=== PATIENT | male | born 1940 | race Caucasian/White ===

== ENCOUNTER 2020-02-03 13:04 | Outpatient (REF) | payer MEDICARE, SELFPAY | END 2020-02-03 13:05 | disposition home or self-care (01) | LOC: HO.HSH4W 13:04 | PROVIDERS: Visit Provider Internal Medicine Interventional Cardiology | DX: Z20.828 Contact with and (suspected) exposure to other viral communicable diseases (principal) | CPT/HCPCS: U0003 ==

== ENCOUNTER 2020-02-08 07:27 | Outpatient (REF) | payer MEDICARE, SELFPAY ==
[2020-02-08 08:27] LABS: MANUAL DIFF FLAG NO
[2020-02-08 08:30] LABS: Basophils Percent Auto 0.6 % (0-2); Eosinophils Absolute Auto 0.1 X10*3/uL (0.0-0.4); Hematocrit 33.5 % (42-52); Hemoglobin 11.4 g/dl (14.0-18.0); Imm Gran Abs Auto 0.01 X10*3/uL (0.00-0.03); Imm Gran Pct Auto 0.2 % (0.0-0.4); Lymphocytes Absolute Auto 2.6 X10*3/uL (1.2-4.9); Mean Corpuscular Hemoglobin 33.4 pg (27.0-33.0); Mean Corpuscular Volume 98.2 fL (80-98); Monocytes Absolute Auto 0.6 X10*3/uL (0.1-1.2); Monocytes Percent Auto 9.9 % (2-11); Neutrophils Absolute Auto 3.1 X10*3/uL (2.0-8.3); Neutrophils Percent Auto 47.3 % (45-73); Platelet Count 132 X10*3/uL (160-400); Red Blood Count 3.41 X10*6/uL (4.60-5.80); Red Cell Distribution Width 12.5 % (11.0-16.0); White Blood Count 6.5 X10*3/uL (4.8-10.8)
[2020-02-08 09:12] LABS: Vitamin D 25-OH Total 21.2 ng/mL (>30)
== END 2020-02-08 07:28 | disposition home or self-care (01) ==
LOC: HO.HSH4W 07:27
PROVIDERS: Visit Provider Internal Medicine
DX: E55.9 Vitamin D deficiency, unspecified (principal)
CPT/HCPCS: 36415; 82306; 85025

== ENCOUNTER 2020-03-15 06:59 | Outpatient (REF) | payer MEDICARE, SELFPAY ==
[2020-03-15 09:16] LABS: Anion Gap 11 (12-20); Blood Urea Nitrogen 24 mg/dL (9-16); Carbon Dioxide 27 mmol/L (22-29); Chloride 103 mmol/L (96-108); Estimated Glomerular Filt Rate > 60; Glucose Fasting 86 mg/dL (60-99); Potassium 4.2 mmol/l (3.3-5.1); Sodium 137 mmol/L (135-145)
== END 2020-03-15 07:00 | disposition home or self-care (01) ==
LOC: HO.HSH4W 06:59
PROVIDERS: Visit Provider Internal Medicine
DX: R03.0 Elevated blood-pressure reading, without diagnosis of hypertension (principal)
CPT/HCPCS: 80051; 82565; 82947; 84520

== ENCOUNTER 2020-03-16 11:24 | Outpatient (REF) | payer MEDICARE, SELFPAY ==
[2020-03-16 11:44] LABS: MANUAL DIFF FLAG NO
[2020-03-16 11:47] LABS: Basophils Percent Auto 0.4 % (0-2); Eosinophils Absolute Auto 0.2 X10*3/uL (0.0-0.4); Eosinophils Percent Auto 2.2 % (0-4); Hematocrit 36.1 % (42-52); Hemoglobin 12.3 g/dl (14.0-18.0); Imm Gran Abs Auto 0.03 X10*3/uL (0.00-0.03); Imm Gran Pct Auto 0.4 % (0.0-0.4); Lymphocytes Absolute Auto 2.2 X10*3/uL (1.2-4.9); Lymphocytes Percent Auto 29.9 % (20-40); Mean Corpuscular HGB Conc 34.1 g/dl (31.0-36.0); Mean Corpuscular Hemoglobin 33.8 pg (27.0-33.0); Mean Corpuscular Volume 99.2 fL (80-98); Mean Platelet Volume 10.9 fL (9.4-12.4); Monocytes Absolute Auto 0.7 X10*3/uL (0.1-1.2); Monocytes Percent Auto 9.8 % (2-11); Neutrophils Absolute Auto 4.2 X10*3/uL (2.0-8.3); Neutrophils Percent Auto 57.3 % (45-73); Platelet Count 145 X10*3/uL (160-400); Red Blood Count 3.64 X10*6/uL (4.60-5.80); Red Cell Distribution Width 13.1 % (11.0-16.0); White Blood Count 7.4 X10*3/uL (4.8-10.8)
[2020-03-16 12:13] LABS: Alanine Aminotransferase < 6 U/L (0-40); Alkaline Phosphatase 67 U/L (39-117); Anion Gap 10 (12-20); Aspartate Amino Transferase 9 U/L (5-37); Bilirubin Total 0.4 mg/dL (0.0-1.0); Blood Urea Nitrogen 19 mg/dL (9-16); Calcium 8.3 mg/dL (8.4-10.2); Carbon Dioxide 27 mmol/L (22-29); Chloride 105 mmol/L (96-108); Estimated Glomerular Filt Rate > 60; Glucose Random 110 mg/dL (60-115); Potassium 4.2 mmol/l (3.3-5.1); Sodium 138 mmol/L (135-145); Total Protein 6.8 g/dL (6.5-8.0)
== END 2020-03-16 11:25 | disposition home or self-care (01) ==
LOC: HO.HSH4W 11:24
PROVIDERS: Visit Provider Internal Medicine
DX: D64.9 Anemia, unspecified (principal)
CPT/HCPCS: 36415; 80053; 85025

== ENCOUNTER 2020-07-05 22:17 | Emergency (ER) | payer MEDICARE, SELFPAY ==
--- NOTE | ~2020-07-05 | XR_ITS ---
EXAMINATION: XR CHEST CLINICAL INFORMATION: Altered mental status COMPARISON: None TECHNIQUE: Frontal view of the chest was obtained. FINDINGS: All EKG lead wires overlie the area of abnormality which is at the left base in the retrocardiac region with increased opacity and obscuration left hemidiaphragm. Findings consistent with left lower lobe collapse/consolidation. The heart size is normal. The right lung is clear. No pleural effusions are seen. Degenerative changes noted in both shoulders and the spine. Rounded eggshell calcification just beneath the medial end of the right clavicle most likely represents the innominate artery XR/XR chest 1V IMPRESSION: Left lower lobe collapse/consolidation.
--- NOTE | 2020-07-05 22:25 | ECG_ITS ---
Test Reason : CHANGE IN MENTAL Blood Pressure : / mmHG Vent. Rate : 068 BPM Atrial Rate : 068 BPM P-R Int : 362 ms QRS Dur : 160 ms QT Int : 458 ms P-R-T Axes : 038 -47 015 degrees QTc Int : 487 ms Sinus rhythm with 1st degree A-V block Possible Left atrial enlargement Right bundle branch block Left anterior fascicular block Bifascicular block Left ventricular hypertrophy Cannot rule out Septal infarct , age undetermined Abnormal ECG No previous ECGs available Referred By: Gamaliel Rios Electronically Signed By:SHARRI BAUM MD
--- NOTE | 2020-07-05 22:25 | ED.AMS ---
HPI - Altered Mental Status General Chief Complaint: General Medical Stated Complaint: general medical Time Seen by Provider: 07/05/20 22:22 Source: patient and EMS Mode of arrival: EMS Limitations: altered mental status History of Present Illness HPI narrative: Patient from detention facility with history of Parkinson disease was in deep sleep not responding for 20 minutes prior to arrival woke up back to baseline but family told the nurses to send the patient to the ER. Patient at his baseline denies any complaints alert oriented x2 which is his baseline occasionally having sporadic nonproductive cough which is going on for last few days complaint: altered mental status and decreased responsiveness Onset (ago): minute(s) Timing confirmed by: caregiver Severity: mild Related Data Previous Rx's Medication Instructions Recorded amoxicillin-pot clavulanate 1 tab PO BID #20 tab 07/06/20 [Augmentin] Allergies Allergy/AdvReac Type Severity Reaction Status Date / Time No Known Allergies Allergy Verified 07/05/20 22:25 Review of Systems Review of Systems: Yes Unobtainable due to mental status PMFSH Past Medical History Medical History A-fib Anemia BPH (benign prostatic hyperplasia) CKD (chronic kidney disease) Eczema GERD (gastroesophageal reflux disease) HTN (hypertension) Hyperlipidemia Parkinsons Solar degeneration Social History Social History Alcohol intake: former Smoking Status: Former smoker Use of substances other than those prescribed or required for medical reasons: No Advance Directives: No Advance Directives Information Provided: Yes Physical Exam Vital Signs: Vital Signs: Last Vital Signs Temp 98.7 F 07/05/20 22:29 Pulse 52 07/06/20 00:35 Resp 18 07/06/20 00:35 BP 120/70 07/05/20 22:29 Pulse Ox 94 07/06/20 00:35 Body Mass Index 24.0 Const: General: comfortable, no acute distress, alert and awake Nutritional Appearance: average body habitus Orientation/consciousness: oriented to person and oriented to place HENMT: Head: Yes normocephalic and Yes atraumatic Ears: hearing grossly normal bilaterally Eyes: General: appearance normal, both eyes and all related structures Neck: Neck: Yes normal visual inspection and Yes full ROM Chest: Chest palpation & inspection: normal inspection of the chest Resp: Effort & Inspection: normal respiratory effort Auscultation: clear to auscultation bilaterally, no crackles and no rales Cardio: Jugular venous distension: no JVD Palpation: normal PMI Rate: regular rate Rhythm: regular rhythm Heart sounds: S1 normal heart sound present and S2 normal heart sound present Peripheral pulses: Peripheral pulses 2+ throughout GI: Inspection: Yes normal to inspection Palpation (GI): Soft to palpation and nontender : General: Yes no CVA tenderness Back/Spine/Pelvis: Back: no CVA tenderness Thoracic/Lumbar Spine: thoracic and lumbar spine normal to inspection Skin: General skin exam: no rashes or lesions noted Neuro: Other: Parkinson's features+ with resting tremors General: oriented to person, oriented to place and no focal motor deficits Extrem: General: Yes normal to inspection, Yes full ROM and Yes no pedal edema MDM - Altered Mental Status MDM Narrative Medical decision making narrative: Patient with possible aspiration pneumonia left lower lobe no leukocytosis labs are stable patient alert oriented x2 saturating 99% at room air IV dose of Zosyn was given in the ER patient discharged back to detention on Augmentin Differential Diagnosis Differential diagnosis: Likely altered mental status Medical Records Attestation: I reviewed the patient's medical records. Lab Data Attestation: I reviewed the patient's lab results. Result diagrams: 07/05/20 22:54 07/05/20 22:54 Labs: Lab Results 07/05/20 07/05/20 07/05/20 Range/Units 22:54 22:54 22:54 WBC 7.9 (4.8-10.8) X10*3/uL RBC 3.17 L (4.60-5.80) X10*6/uL Hgb 10.7 L (14.0-18.0) g/dl Hct 31.8 L (42-52) % MCV 100.3 H (80-98) fL MCH 33.8 H (27.0-33.0) pg MCHC 33.6 (31.0-36.0) g/dl RDW 13.5 (11.0-16.0) % Plt Count 158 L (160-400) X10*3/uL MPV 9.9 (9.4-12.4) fL Immature Gran % (Auto) 0.4 (0.0-0.4) % Neut % (Auto) 43.1 L (45-73) % Lymph % (Auto) 42.1 H (20-40) % [place] % (Auto) 12.1 H (2-11) % Eos % (Auto) 1.8 (0-4) % Baso % (Auto) 0.5 (0-2) % Lymph # (Auto) 3.3 (1.2-4.9) X10*3/uL [place] # (Auto) 1.0 (0.1-1.2) X10*3/uL Eos # (Auto) 0.1 (0.0-0.4) X10*3/uL Baso # (Auto) 0.0 (0.0-0.2) X10*3/uL Abs Immat Gran (auto) 0.03 (0.00-0.03) X10*3/uL Absolute Neuts (auto) 3.4 (2.0-8.3) X10*3/uL Absolute Nucleated RBC 0.000 (0.0-0.012) X10*3/uL Nucleated RBC % (auto) 0.0 (0.0-0.2) /100WBC PT 12.6 (10.8-13.0) SEC INR 1.1 (0.9-1.1) APTT 34.7 (24.1-38.0) SEC Sodium 133 L (135-145) mmol/L Potassium 4.6 (3.3-5.1) mmol/L Chloride 101 (96-108) mmol/L Carbon Dioxide 25 (22-29) mmol/L Anion Gap 12 (12-20) BUN 24 H (9-16) mg/dL Creatinine 0.99 (0.5-1.4) mg/dL Estim Creat Clear Calc 51.9 Estimated GFR > 60 Random Glucose 81 (60-115) mg/dL Calcium 8.4 (8.4-10.2) mg/dL Total Bilirubin 0.3 (0.0-1.0) mg/dL Direct Bilirubin 0.2 (0.0-0.5) mg/dL AST 13 D (5-37) U/L ALT 6 (0-40) U/L Alkaline Phosphatase 69 (39-117) U/L Troponin I High Sens (<3.5-35.0) ng/L Total Protein 6.8 (6.5-8.0) g/dL Albumin 3.9 (3.5-5.0) g/dL 07/05/20 Range/Units 22:54 WBC (4.8-10.8) X10*3/uL RBC (4.60-5.80) X10*6/uL Hgb (14.0-18.0) g/dl Hct (42-52) % MCV (80-98) fL MCH (27.0-33.0) pg MCHC (31.0-36.0) g/dl RDW (11.0-16.0) % Plt Count (160-400) X10*3/uL MPV (9.4-12.4) fL Immature Gran % (Auto) (0.0-0.4) % Neut % (Auto) (45-73) % Lymph % (Auto) (20-40) % [place] % (Auto) (2-11) % Eos % (Auto) (0-4) % Baso % (Auto) (0-2) % Lymph # (Auto) (1.2-4.9) X10*3/uL [place] # (Auto) (0.1-1.2) X10*3/uL Eos # (Auto) (0.0-0.4) X10*3/uL Baso # (Auto) (0.0-0.2) X10*3/uL Abs Immat Gran (auto) (0.00-0.03) X10*3/uL Absolute Neuts (auto) (2.0-8.3) X10*3/uL Absolute Nucleated RBC (0.0-0.012) X10*3/uL Nucleated RBC % (auto) (0.0-0.2) /100WBC PT (10.8-13.0) SEC INR (0.9-1.1) APTT (24.1-38.0) SEC Sodium (135-145) mmol/L Potassium (3.3-5.1) mmol/L Chloride (96-108) mmol/L Carbon Dioxide (22-29) mmol/L Anion Gap (12-20) BUN (9-16) mg/dL Creatinine (0.5-1.4) mg/dL Estim Creat Clear Calc Estimated GFR Random Glucose (60-115) mg/dL Calcium (8.4-10.2) mg/dL Total Bilirubin (0.0-1.0) mg/dL Direct Bilirubin (0.0-0.5) mg/dL AST (5-37) U/L ALT (0-40) U/L Alkaline Phosphatase (39-117) U/L Troponin I High Sens 8.0 (<3.5-35.0) ng/L Total Protein (6.5-8.0) g/dL Albumin (3.5-5.0) g/dL ECG Data ECG #1: Attestation: I personally reviewed and interpreted this ECG as follows: Interpretation: Sinus rhythm heart rate 68 beats per minute with first-degree heart block RBBB left anterior fascicular block left ventricular hypertrophy no acute ischemic changes Discharge Plan Discharge Clinical Impression: Pneumonia Qualifiers: Pneumonia type: due to unspecified organism Laterality: left Lung location: lower lobe of lung Qualified Code(s): J18.9 - Pneumonia, unspecified organism Patient Disposition: Xfer SNF Instructions: Aspiration Pneumonia (DC) Additional Instructions: Possible left-sided lower lobe pneumonia versus atelectasis in x-ray, labs are stable without any leukocytosis Take antibiotics as advised Follow-up with PCP Report to the ER if high fever not feeling good/short of breath Prescriptions: New amoxicillin-pot clavulanate [Augmentin] 875-125 mg tablet 1 tab PO BID Qty: 20 RF: 0 Interventions: ED Discharge Assessment Last Done: 07/06/20 01:05 Discharge Date/Time: 07/06/20 01:05
[2020-07-05 22:29] VITALS: BP 120/70; PULSE 68; RESP 16; TEMP 37.1; O2SAT 99; BMI 24.0
[2020-07-05 22:58] LABS: MANUAL DIFF FLAG NO
[2020-07-05 22:59] LABS: Basophils Percent Auto 0.5 % (0-2); Eosinophils Absolute Auto 0.1 X10*3/uL (0.0-0.4); Eosinophils Percent Auto 1.8 % (0-4); Hematocrit 31.8 % (42-52); Hemoglobin 10.7 g/dl (14.0-18.0); Imm Gran Abs Auto 0.03 X10*3/uL (0.00-0.03); Imm Gran Pct Auto 0.4 % (0.0-0.4); Lymphocytes Absolute Auto 3.3 X10*3/uL (1.2-4.9); Lymphocytes Percent Auto 42.1 % (20-40); Mean Corpuscular HGB Conc 33.6 g/dl (31.0-36.0); Mean Corpuscular Hemoglobin 33.8 pg (27.0-33.0); Mean Corpuscular Volume 100.3 fL (80-98); Mean Platelet Volume 9.9 fL (9.4-12.4); Monocytes Percent Auto 12.1 % (2-11); Neutrophils Absolute Auto 3.4 X10*3/uL (2.0-8.3); Neutrophils Percent Auto 43.1 % (45-73); Platelet Count 158 X10*3/uL (160-400); Red Blood Count 3.17 X10*6/uL (4.60-5.80); Red Cell Distribution Width 13.5 % (11.0-16.0); White Blood Count 7.9 X10*3/uL (4.8-10.8)
[2020-07-05 23:04] LABS: INTERNATIONAL NORM RATIO 1.1 (0.9-1.1); Prothrombin Time 12.6 SEC (10.8-13.0)
[2020-07-05 23:07] LABS: Partial Thromboplastin Time 34.7 SEC (24.1-38.0)
[2020-07-05 23:25] LABS: Alanine Aminotransferase 6 U/L (0-40); Albumin Level 3.9 g/dL (3.5-5.0); Alkaline Phosphatase 69 U/L (39-117); Anion Gap 12 (12-20); Aspartate Amino Transferase 13 U/L (5-37); Bilirubin Direct 0.2 mg/dL (0.0-0.5); Bilirubin Total 0.3 mg/dL (0.0-1.0); Blood Urea Nitrogen 24 mg/dL (9-16); Calcium 8.4 mg/dL (8.4-10.2); Carbon Dioxide 25 mmol/L (22-29); Chloride 101 mmol/L (96-108); Creatinine Clr Calc Pharmacy 51.9; Estimated Glomerular Filt Rate > 60; Glucose Random 81 mg/dL (60-115); Potassium 4.6 mmol/L (3.3-5.1); Sodium 133 mmol/L (135-145); Total Protein 6.8 g/dL (6.5-8.0)
[2020-07-06] MEDS: Piperacillin Sodium/Tazobactam 3.375 GM in 0.9 % Sodium Chloride 50 ML IV (00:23)
[2020-07-06 00:35] VITALS: PULSE 52; RESP 18; O2SAT 94
--- NOTE | 2020-07-06 00:35 | PC.NURSE ---
report given to tresa ann at [facility]. no questions regarding incidiental finding of pneumonia.
== END 2020-07-06 01:05 | disposition skilled nursing facility (03) ==
PROVIDERS: Emergency Provider Internal Medicine; PCP Internal Medicine
DX: J18.9 Pneumonia, unspecified organism (principal); R41.82 Altered mental status, unspecified; I12.9 Hypertensive chronic kidney disease with stage 1 through stage 4 chronic kidney disease, or unspecified chronic kidney disease; N18.9 Chronic kidney disease, unspecified; E78.5 Hyperlipidemia, unspecified; D64.9 Anemia, unspecified; K21.9 Gastro-esophageal reflux disease without esophagitis; I48.91 Unspecified atrial fibrillation; G20 Parkinson's disease
CPT/HCPCS: 36415; 71045; 80048; 80076; 84484; 85025; 85610; 85730; 93005; 96365; 99284; J2543

== ENCOUNTER 2020-07-24 06:46 | Outpatient (REF) | payer MEDICARE, SELFPAY ==
[2020-07-24 09:33] LABS: Anion Gap 11 (12-20); Carbon Dioxide 27 mmol/L (22-29); Chloride 106 mmol/L (96-108); Potassium 4.5 mmol/L (3.3-5.1); Sodium 139 mmol/L (135-145)
== END 2020-07-24 06:47 | disposition home or self-care (01) ==
LOC: HO.HSH2E 06:46
PROVIDERS: Visit Provider Internal Medicine Endocrinology, Diabetes & Metabolism
DX: G20 Parkinson's disease (principal)
CPT/HCPCS: 36415; 80051

== ENCOUNTER 2020-09-21 08:25 | Outpatient (REF) | payer MEDICARE, SELFPAY ==
--- NOTE | ~2020-09-21 | FL_ITS ---
EXAMINATION: FL BARIUM SWALLOW CLINICAL INFORMATION: Dysphagia COMPARISON: None TECHNIQUE: Barium swallow examination is performed using fluoroscopic evaluation in addition to multiple fluoroscopic spot views. The patient is imaged both upright and prone and using both thick and thin sulfate along with effervescent granules. Fluoroscopy time: 1.6 minutes DAP: 14.931 Gycm2 Images: 30 FINDINGS: Following oral administration of thin barium there is slow propagation bolus from the oral cavity through the pharynx, esophagus into stomach. No obstruction seen along the course of the esophagus. Almost all stomach is intrathoracic consistent with a moderate-sized hiatal hernia. The stomach is slightly twisted within the hernia but no obstruction seen. There is mild gastroesophageal reflux in supine lying position. FL/FL barium swallow IMPRESSION: Incarcerated moderate to large hiatal hernia in upright view. Mild gastroesophageal reflux in supine lying position.
== END 2020-09-21 08:26 | disposition home or self-care (01) ==
LOC: HO.XRAY 08:25
PROVIDERS: PCP Internal Medicine Medical Oncology; Visit Provider Internal Medicine Medical Oncology
DX: R13.10 Dysphagia, unspecified (principal)
CPT/HCPCS: 74220

== ENCOUNTER 2020-10-01 13:58 | Outpatient (REF) | payer MEDICARE, SELFPAY ==
--- NOTE | ~2020-10-01 | FL_ITS ---
EXAMINATION: FL MODIFIED BARIUM SWALLOW CLINICAL INFORMATION: Dysphagia COMPARISON: None TECHNIQUE: Routine modified barium swallow was performed in lateral fluoroscopy projection in presence of speech therapist. FINDINGS: Oral administration of solid cookie with barium, puree, ground chicken, nectar and thin liquid consistency coated with barium there is slow propagation of bolus from the oral cavity into the pharynx and esophagus without laryngeal penetration or aspiration. There is slight delay in the oral phase with solid foods. Mild retention of semisolid and solid food was seen in the valleculae and piriform sinuses which cleared with dry swallowing. FLUOROSCOPY TIME: 2.6 minutes DOSE AREA PRODUCT: 2.178 uGy-m2 (microgray-meter squared) FL/FL barium swallow modified IMPRESSION: Delay in the oral phase solid and liquids. However, there is no laryngeal penetration and aspiration seen. Mild retention of food in the valleculae and piriform sinuses especially with solid food cleared with subsequent dry swallowing. Correlate with speech therapy report.
--- NOTE | 2020-10-02 15:44 | MHC.SL.IMP ---
Date of Plan of Treatment: 10/01/20 Onset of Symptoms/Illness: 10/01/20 Date Treatment Started: 10/01/20 Admitting Diagnosis: Parkinson's Disease AFIB Anemia BPH CKD Eczema GERD Hypertension Hyperlipidemia Solar degeneration Primary Speech & Language Diagnosis: R13.12 Oropharyngeal Phase Dysphagia Reason for Today's Visit: 49336 Modified Barium Swallow Study Pre-evaluation Dietary Consistencies: Grnd/Mech Altered (NDD2) Pre-evaluation Liquid Consistency: Thin Pre-evaluation Medication Administration: Crushed with Puree Medical History: Modified Barium Swallow Study Fluoroscopic Evaluation of Swallowing Function CPT Code 76936 Evaluation Year: 2020 Reason for Study: Choking episodes Referring Physician: Chico Barreto M.D. Evaluating Clinician: Mandy Shah M.A., CCC-SHIFT SUPERVISOR RN Study Number: 1 Patient Name: Rony Oquendo Status: Outpatient, Wheelchair Age: 80 Gender: Male MEDICAL HISTORY: Primary (admitting) Diagnosis: Parkinson's Disease Year of Onset or Diagnosis: 2018 Comorbidities: AFIB Anemia BPH CKD Eczema GERD Hypertension Hyperlipidemia Solar degeneration Current (pre-evaluation) Intake/Diet: Route: PO Diet Grade: Mechanical Soft Liquid Consistencies: Thin Pre-Study Functional Oral Intake Scale (FOIS): 5- Total oral intake of multiple consistencies requiring special preparation Pain: None reported at time of study Oral Motor Exam Facial Symmetry: Symmetrical Mouth Occlusion: Normal Oral-Facial Teeth Characteristics: Oral-Facial Lip Pucker Description: Normal Oral-Facial Smile (Lips) Description: Normal Oral-Facial Puff Cheeks Description: Reduced Strength Tongue Size: Normal Tongue Frenum Length: Normal Tongue Excursion Description: Normal Tongue Range of Movement Description: Normal Tongue Speed of Movement Description: Reduced Tongue Strength of Movement (against opposing pressure): Reduced Is patient able to manage secretions?: Yes Food and Liquid Trials: Oral Impairment: Lip Closure: Did not test Oral Impairment: Tongue Control During Bolus Hold: 3=Posterior escape of greater than half of bolus Oral Impairment: Bolus Preparation/Mastication: 2=Disorganized chewing/mashing with solid pieces of bolus Oral Impairment: Bolus Transport/Lingual Motion: 3=Repetitive/disorganized tongue motion Oral Impairment: Oral Residue: 2=Residue collection on oral structures Oral Impairment:Initiation of Pharyngeal Swallow: 3=Bolus head in pyriforms Pharyngeal Impairment: Soft Palate Elevation: 0=No bolus between soft palate (SP)/pharyngeal wall (PW) Pharyngeal Impairment: Laryngeal Elevation: 1=Partial thyroid cartilage/arytenoids to epiglottic petiole movement Pharyngeal Impairment: Anterior Hyoid Excursion: 1=Partial anterior movement Pharyngeal Impairment: Epiglottic Movement: 1=Partial inversion Pharyngeal Impairment: Laryngeal Vestibular Closure:: 0=Complete: no air/contrast in laryngeal vestibule Pharyngeal Impairment: Pharyngeal Stripping Wave: 1=Present: diminished Pharyngeal Impairment: Pharyngeal Contraction: Did not test Pharyngeal Impairment: Pharyngoesophageal Segment Openin=Complete distension and complete duration: no obstruction of flow Pharyngeal Impairment: Tongue Base (TB) Retraction: 3=Wide column of contrast/air between TB and posterior PW Pharyngeal Impairment: Pharyngeal Residue: 2=Collection of residue within or on pharyngeal structures Pharyngeal Impairment: Esophageal Clearance Upright Position: Did not test Impressions and Recommendations Clinical Observations: OBJECTIVE: Time-out: performed at 02:45 Evaluation Start: 02:30; Stop: 02:40 Patient Positioning: Seated 70-90 degrees Viewing Planes: LATERAL ONLY Contrast: MBSImP? Standardized Protocol using commercially prepared, standardized Barium viscosities, including: Varibar? THIN LIQUID (40% w/v, <15 cps) , Varibar? NECTAR (40% w/v, <150-450 cps) , 1/2 Shortbread Cookie (1 x1 x.25 ) [facility]: [id number] [facility] Results: Lip closure for intraoral bolus containment could not be assessed due to logistical reasons not related to physiologic impairment. Tongue control during bolus hold allowed posterior escape of greater than half of the bolus. Bolus preparation and mastication demonstrated disorganized chewing/mashing with solid pieces of the bolus unchewed. Bolus transport/lingual motion was with repetitive/disorganized motion of the tongue. Oral residue was a collection on oral structures. Initiation of the pharyngeal swallow occurred when the bolus head was in the pyriform sinuses. Soft palate elevation resulted in no bolus between the soft palate and the pharyngeal wall. Laryngeal elevation was decreased, with partial superior movement of the thyroid cartilage/partial approximation of the arytenoids to the epiglottic petiole. Anterior hyoid excursion demonstrated partial anterior movement. Epiglottic movement resulted in partial inversion. Laryngeal vestibular closure was complete, as indicated by no air or contrast within the laryngeal vestibule at the height of the swallow. Pharyngeal stripping wave was present, but diminished. Pharyngeal contraction could not be determined due to logistical reasons not related to physiologic impairment. Pharyngoesophageal segment opening was completely distended for complete duration with no obstruction of bolus flow. Tongue base retraction allowed a wide column of contrast or air between the retracted tongue base and the posterior pharyngeal wall. Pharyngeal residue was a collection of residue within or on pharyngeal structures. Esophageal clearance in the upright position could not be assessed due to logistical reasons not related to physiologic impairment. Oral Impairment Score: 13 (absence of score, component 1) Pharyngeal Impairment Score: 9 (absence of score, component 13) Esophageal Impairment Score: --- (absence of score, component 17) Laryngeal Penetration and Aspiration: Neither penetration nor aspiration was observed in today's study with Cookie, [place]-thick, Thin. ASSESSMENT: This exam was conducted by a radiologist and speech-language pathologist. Patient was accompanied by staff from [facility], where patient resides. Patient was seated upright at optimal 90 degree position for lateral view only. Patient trialed the following liquid and solid consistencies: -nectar thick liquid barium by cup/straw -thin liquid barium by cup/straw -pureed solid (applesauce mixed with barium paste) -ground solid (chicken salad mixed with barium paste) -regular solid (Natalya Doone cookie coated with barium paste) Patient displayed moderate oropharyngeal dysphagia, characterized by impairments in the following components of swallow physiology: ORAL PHASE: IMPAIRED -posterior escape of greater than 50% of bolus with both solids and liquids -disorganized, prolonged chewing -repetitive/ disorganized posterior tongue movements -mild oral residue -delayed pharyngeal swallow trigger when bolus head reached pyriforms PHARYNGEAL PHASE: IMPAIRED -incomplete laryngeal elevation with partial anterior hyoid movement and partial epiglottic inversion -diminished pharyngeal stripping wave -reduced tongue base retraction -mild pharyngeal retention on tongue base and posterior pharyngeal wall as well as in valleculae and pyriforms No evidence of aspiration or penetration during this exam. Noted prolonged oral preparatory phase, delayed pharyngeal swallow trigger, and partial laryngeal elevation. Mild oral and pharyngeal residue. Patient cleared his throat as a result of retention. Patient was cued for double swallow strategy. Reduced residue with subsequent dry swallows. The following compensatory strategies have been used in therapy as well as in today's study and improved swallowing function: Bolus Volume Change decreased Oral Residue, Pharyngeal Residue Rate of Ingestion Change decreased Oral Residue, Pharyngeal Residue Additional Swallow(s) per Bolus decreased Oral Residue, Pharyngeal Residue Liquid Intake Recommendation: Thin Liquid Intake Strategies: Small Sips No Straws Double Swallow Dietary Recommendations: Grnd/Mech Altered (NDD2) Medication Administration: Crushed with Puree Compensatory Strategies Recommended: Sitting Upright (90 deg) Double Swallow No Straw Liquids from Cup Liquids from Spoon Small Bites and Sips Alternate Liquids/Solids Rate of Ingestion Change Avoid Specific Foods Supervision during eating and or drinking: Total Supervision (1:1) Recommended Treatments: Compens. Strategy Educat. Recommendation for Speech Therapy: Speech Therapy through [facility] Text Comment: Intake Recommendations: Route: PO Diet Grade: Mechanical Soft Liquid Consistencies: Thin Post-Study Functional Oral Intake Scale (FOIS): 5- Total oral intake of multiple consistencies requiring special preparation Patient appears to be on appropriate diet textures. Recommend continue speech therapy for dysphagia at [facility]. Recommend continue current diet textures GROUND/MECH ALTERED (NDD2) solids and THIN liquids, with pills CRUSHED in PUREE. Patient is recommended the following precautions: -supervision during meals -food moistened with sauce/gravy when possible -avoid tough foods and sticky foods; avoid mixed consistencies -small bites and cues to chew food well -alternate bite of food with sip of liquid -no straws due to delay in swallow trigger and posterior escape of bolus -small, individual sips; no ?chugging? or consecutive sips -double swallow with both solids and liquids -upright 90 degree position when eating/drinking Suggested Referrals: The patient might benefit from a referral to: Neurology Indication for Referral: management of PD Therapy Recommendations: Therapy will be continued The following compensatory strategies and/or therapeutic exercises will be part of the upcoming therapy/management plan: Bolus Volume Change Rate of Ingestion Change Additional Swallow(s) per Bolus Prognosis for Improvement: The prognosis for the patient to meet nutritional needs by mouth is fair based on degree of impairment. Recyclable Materials Sorter Goals: ? The patient will tolerate the least restrictive diet with a safe/efficient swallow to maintain adequate nutrition and hydration. ? The patient and/or family will participate in further education for swallowing goals. Short Term Goals: ? Diet - The patient will tolerate a mechanical soft diet with thin liquids without signs or symptoms of penetration/aspiration 100% of the time. - The patient will participate in therapeutic PO trials with the SHIFT SUPERVISOR RN. ? Guidelines - The patient will comply with/recall the following guidelines/strategies 100% of the time with minimal cuing: Bolus Volume Change, Rate of Ingestion Change, Additional Swallow(s) per Bolus, Effortful Swallow (used during PO intake), No Straws. ? Education - The patient, family, caregiver, nurse will verbalize/demonstrate understanding of the results of this evaluation, the above recommendations, and the swallowing guidelines. Creative Intern Clinician/Clinical Fellow: No Supervisory Statement: N/A Speech Language Pathologist: Mandy Shah M.A., [facility]-SHIFT SUPERVISOR RN
== END 2020-10-01 13:59 | disposition home or self-care (01) ==
LOC: HO.XRAY 13:58
PROVIDERS: Visit Provider Internal Medicine Medical Oncology
DX: R13.10 Dysphagia, unspecified (principal)
CPT/HCPCS: 74230; 92611

== ENCOUNTER 2020-10-24 13:00 | Inpatient (IN) | payer OTHER, MEDICARE, SELFPAY ==
--- NOTE | ~2020-10-24 | XR_ITS ---
EXAMINATION: XR CHEST CLINICAL INFORMATION: Weakness COMPARISON: July 05, 2020 TECHNIQUE: AP portable view of the chest was obtained. FINDINGS: There is a region of density in region which may lie within the lingula or left lower lobe may represent atelectasis or pneumonitis. There is also prominent calcified mitral annulus. Heart normal size. No evidence of edema. No pneumothorax or significant pleural effusion. Aortic calcifications seen. XR/XR chest 1V IMPRESSION: Focus of density left base which may be related to atelectasis. Prominent calcified mitral annulus but without evidence of
--- NOTE | ~2020-10-24 | CT_ITS ---
EXAMINATION: CT CHEST WITHOUT CONTRAST CLINICAL INFORMATION: Weakness. Evaluate for pneumonia. COMPARISON: Previous chest x-rays most recent from earlier the same day TECHNIQUE: Multidetector volumetric CT imaging of the chest was done. Axial MIP volume rendering provided. Sagittal and coronal reformatted images were obtained. This CT examination was performed using dose optimization techniques as appropriate, variously including the following: *Automated exposure control *Adjustment of mA and/or kV according to patient size (this includes techniques or standardized protocols for targeted exams where dose is matched to indication/reason for exam; i.e. extremities or head) *Use of iterative reconstruction technique DLP: 286 mGy-cm FINDINGS: LUNGS: There are clustered nodular opacities and denser consolidation or airspace disease seen in the right lower lobe suggestive of bronchopneumonia. There small clustered nodular opacities seen in the posterior segment of the right upper lobe that may be related to infection as well. The largest measures 1 cm axial image 20 series 3. There is a subsegmental atelectasis in the left lower lobe adjacent to the large esophageal hernia or intrathoracic stomach. MEDIASTINUM: There is evidence of severe atherosclerotic disease. The heart does not appear enlarged. There is coronary artery and aortic valve calcification. There is no pericardial effusion. There are small mediastinal lymph nodes. There is a large esophageal hernia or intrathoracic stomach. PLEURA: There is no pleural effusion. No pleural mass or thickening. AXILLA: No lymphadenopathy. UPPER ABDOMEN: Large esophageal hernia. Atherosclerotic disease. OSSEOUS STRUCTURES: There is increased thoracic kyphosis and degenerative changes of the spine. There are old left rib fractures. CT/CT chest wo con IMPRESSION: Right lower lobe bronchopneumonia. Severe atherosclerotic disease. Large esophageal hernia or intrathoracic stomach.
--- NOTE | ~2020-10-24 | CT_ITS ---
EXAMINATION: CT HEAD WITHOUT CONTRAST CLINICAL INFORMATION: Altered mental status. COMPARISON: None TECHNIQUE: Contiguous axial imaging was performed from the skull base to vertex without intravenous administration of contrast. Additional 2-D coronal and sagittal reformatted images are generated on the CT workstation and uploaded to PACS. This CT examination was performed using dose optimization techniques as appropriate, variously including the following: *Automated exposure control *Adjustment of mA and/or kV according to patient size (this includes techniques or standardized protocols for targeted exams where dose is matched to indication/reason for exam; i.e. extremities or head) *Use of iterative reconstruction technique DLP: 773 mGy-cm FINDINGS: There is no intracranial hemorrhage, hematoma, or extra-axial fluid collection. There are generalized atrophic changes with prominence of the cortical sulci and fissures and cisterns. There is some mild benign bilateral basal ganglia and right dentate nucleus calcifications. Periventricular white matter gliosis is present consistent with small vessel ischemic changes. There is a small lacunar infarct central left carolyn 0.4 cm size. There is no visible acute territorial infarct or mass lesion. The calvarium appears intact. There is no pneumocephalus or orbital emphysema. The visualized sinuses and middle ears and mastoid air cells show no significant mucosal thickening. There are no air-fluid levels. CT/CT head/brain wo con IMPRESSION: 1. Moderate generalized atrophic changes with probable chronic periventricular white matter gliosis consistent with small vessel ischemic changes. Small pontine lacunar infarct. 2. No intracranial hemorrhage or hydrocephalus. 3. No visible acute territorial infarct.
[2020-10-24 13:49] VITALS: BP 100/50; BP 86/62; PULSE 75; PULSE 76; RESP 20; O2SAT 95; O2SAT 96; BMI 32.1
--- NOTE | 2020-10-24 14:04 | ECG_ITS ---
Test Reason : HYPOTENTION Blood Pressure : / mmHG Vent. Rate : 090 BPM Atrial Rate : 090 BPM P-R Int : 256 ms QRS Dur : 156 ms QT Int : 400 ms P-R-T Axes : 000 -68 023 degrees QTc Int : 489 ms Sinus rhythm with 1st degree A-V block Right bundle branch block Left anterior fascicular block Bifascicular block Septal infarct (cited on or before 05-JUL-2020) Abnormal ECG When compared with ECG of 05-JUL-2020 22:42, Questionable change in initial forces of Septal leads Referred By: Estella Braun Electronically Signed By:SHARRI BAUM MD
--- NOTE | 2020-10-24 14:11 | ED_ITS ---
HPI - Weakness General Chief complaint: General Medical Stated complaint: HYPOTESION Time Seen by Provider: 10/24/20 14:02 Source: patient and EMS Mode of arrival: EMS Limitations: altered mental status History of Present Illness MD Complaint: generalized weakness (BP in 60s at SNF) Onset (ago): hour(s) (since this AM) Duration: improved Location: generalized Migration: none Severity: moderate Quality: dull Relieving factors: none Exacerbating factors: other (reportedly BP meds were held) Context: new medication (on clonidine, metoprolol, flomax) Associated symptoms: loss of appetite Related Data Home Medications Medication Instructions Recorded Confirmed aspirin 81 mg PO DAILY 10/24/20 10/24/20 atorvastatin 40 mg PO BEDTIME 10/24/20 10/24/20 carbidopa-levodopa 2 tab PO QID 10/24/20 10/24/20 cholecalciferol (vitamin D3) 25 mcg PO DAILY 10/24/20 10/24/20 clonidine HCl 0.1 mg PO DAILY@1200 10/24/20 10/24/20 cyanocobalamin (vitamin B-12) 1,000 mcg PO DAILY 10/24/20 10/24/20 docusate sodium 100 mg PO DAILY 10/24/20 10/24/20 lactulose 30 ml PO DAILY 10/24/20 10/24/20 metoprolol tartrate 25 mg PO DAILY@1200 10/24/20 10/24/20 polyethylene glycol 3350 [Miralax] 8.5 g PO QPM 10/24/20 10/24/20 sennosides [senna] 8.6 mg PO BID 10/24/20 10/24/20 tamsulosin 0.4 mg PO BEDTIME 10/24/20 10/24/20 Allergies Allergy/AdvReac Type Severity Reaction Status Date / Time No Known Allergies Allergy Verified 07/05/20 22:25 Review of Systems Review of Systems: ROS unable to be obtained due to altered mental status [facility] Past Medical History Attestation statement: The following information was validated with the patient. Medical History A-fib Anemia BPH (benign prostatic hyperplasia) CKD (chronic kidney disease) Eczema GERD (gastroesophageal reflux disease) HTN (hypertension) Hyperlipidemia Parkinsons Solar degeneration Social History Social History Alcohol intake: former Patient Tobacco Use Status: Former Tobacco user Use of substances other than those prescribed or required for medical reasons: No Advance Directives: No Advance Directives Information Provided: Yes Physical Exam Vital Signs: Vital Signs: Last Vital Signs Temp 98.7 F 10/24/20 14:32 Pulse 90 10/24/20 15:36 Resp 18 10/24/20 15:36 BP 133/52 L 10/24/20 15:36 Pulse Ox 96 10/24/20 15:36 Body Mass Index 32.1 Appearance: Alert. Oriented X2. No acute distress. Very soft spoken Eyes: Pupils equal, round and reactive to light. ENT: Pharynx normal. Neck: Normal inspection. Neck supple. CVS: Normal heart rate and rhythm. Pulses normal. Respiratory: No respiratory distress. Breath sounds decreased in the bases Abdomen: Soft and nontender. no grimace to palpation Skin: Skin warm and dry. Normal skin color. Normal skin turgor. Extremities: No lower extremity edema. No calf ttp Neuro: Oriented X 2. No motor deficit. No sensory deficit. Course Course Course Narrative: empiric cefepime ordered added on vancomycin, treated for HCAP MDM - Weakness MDM Narrative Medical decision making narrative: 80 yo male with HTN, parkinson's difficult to control BPs no meds given this AM seems more confused and lethargic they report BPs in 60s at facility, BP stable here will need labs, CT head for ICH, UA, CXR, 2L of IVF ordered, dispo per results and findings, could be infection/dehydration/autonomic dysfunction patient is DNR/DNI Lab Data Result diagrams: 10/24/20 15:02 10/24/20 15:02 Labs: Lab Results 10/24/20 10/24/20 10/24/20 Range/Units 15:02 15:02 15:02 WBC 12.9 H (4.8-10.8) X10*3/uL RBC 3.14 L (4.60-5.80) X10*6/uL Hgb 10.6 L (14.0-18.0) g/dl Hct 31.3 L (42-52) % MCV 99.7 H (80-98) fL MCH 33.8 H (27.0-33.0) pg MCHC 33.9 (31.0-36.0) g/dl RDW 13.5 (11.0-16.0) % Plt Count 131 L (160-400) X10*3/uL MPV 10.6 (9.4-12.4) fL Immature Gran % (Auto) 0.4 (0.0-0.4) % Neut % (Auto) 81.4 H (45-73) % Lymph % (Auto) 12.1 L (20-40) % [place] % (Auto) 5.9 (2-11) % Eos % (Auto) 0.0 (0-4) % Baso % (Auto) 0.2 (0-2) % Lymph # (Auto) 1.6 (1.2-4.9) X10*3/uL [place] # (Auto) 0.8 (0.1-1.2) X10*3/uL Eos # (Auto) 0.0 (0.0-0.4) X10*3/uL Baso # (Auto) 0.0 (0.0-0.2) X10*3/uL Abs Immat Gran (auto) 0.05 H (0.00-0.03) X10*3/uL Absolute Neuts (auto) 10.5 H (2.0-8.3) X10*3/uL Absolute Nucleated RBC 0.000 (0.0-0.012) X10*3/uL Nucleated RBC % (auto) 0.0 (0.0-0.2) /100WBC PT 12.9 (9.9-13.0) SEC INR 1.1 (0.9-1.1) APTT 36.2 (24.1-38.0) SEC Sodium 137 (135-145) mmol/L Potassium 4.6 (3.3-5.1) mmol/L Chloride 105 (96-108) mmol/L Carbon Dioxide 24 (22-29) mmol/L Anion Gap 13 (12-20) BUN 26 H (9-16) mg/dL Creatinine 1.34 (0.5-1.4) mg/dL Estim Creat Clear Calc 46.2 Estimated GFR 51 Random Glucose 103 (60-115) mg/dL Lactic Acid (0.5-2.0) mmol/L Calcium 8.3 L (8.4-10.2) mg/dL Magnesium 2.1 (1.6-2.6) mg/dL Total Bilirubin 0.8 (0.0-1.0) mg/dL Direct Bilirubin 0.3 (0.0-0.5) mg/dL AST 9 (5-37) U/L ALT < 6 (0-40) U/L Alkaline Phosphatase 68 (39-117) U/L Ammonia (13-55) umol/L Troponin I High Sens (<3.5-35.0) ng/L Total Protein 6.2 L (6.5-8.0) g/dL Albumin 3.4 L (3.5-5.0) g/dL Lipase 5 L (8-78) U/L Procalcitonin ng/mL TSH 2.36 (0.32-4.0) uIU/mL Urine Color Urine Appearance Urine pH (5.0-8.0) Ur Specific [place] (1.005-1.025) Urine Protein (NEG-TRACE) MG/DL Urine Glucose (UA) (NEG) MG/DL Urine Ketones (NEG) MG/DL Urine Blood (NEG) Urine Nitrite (NEG) Ur Leukocyte Esterase (NEG) COVID-19 (PARVIZ) (Negative) COVID-19 Clin Com 10/24/20 10/24/20 10/24/20 Range/Units 15:02 15:02 15:02 WBC (4.8-10.8) X10*3/uL RBC (4.60-5.80) X10*6/uL Hgb (14.0-18.0) g/dl Hct (42-52) % MCV (80-98) fL MCH (27.0-33.0) pg MCHC (31.0-36.0) g/dl RDW (11.0-16.0) % Plt Count (160-400) X10*3/uL MPV (9.4-12.4) fL Immature Gran % (Auto) (0.0-0.4) % Neut % (Auto) (45-73) % Lymph % (Auto) (20-40) % [place] % (Auto) (2-11) % Eos % (Auto) (0-4) % Baso % (Auto) (0-2) % Lymph # (Auto) (1.2-4.9) X10*3/uL [place] # (Auto) (0.1-1.2) X10*3/uL Eos # (Auto) (0.0-0.4) X10*3/uL Baso # (Auto) (0.0-0.2) X10*3/uL Abs Immat Gran (auto) (0.00-0.03) X10*3/uL Absolute Neuts (auto) (2.0-8.3) X10*3/uL Absolute Nucleated RBC (0.0-0.012) X10*3/uL Nucleated RBC % (auto) (0.0-0.2) /100WBC PT (9.9-13.0) SEC INR (0.9-1.1) APTT (24.1-38.0) SEC Sodium (135-145) mmol/L Potassium (3.3-5.1) mmol/L Chloride (96-108) mmol/L Carbon Dioxide (22-29) mmol/L Anion Gap (12-20) BUN (9-16) mg/dL Creatinine (0.5-1.4) mg/dL Estim Creat Clear Calc Estimated GFR Random Glucose (60-115) mg/dL Lactic Acid 2.2 H* (0.5-2.0) mmol/L Calcium (8.4-10.2) mg/dL Magnesium (1.6-2.6) mg/dL Total Bilirubin (0.0-1.0) mg/dL Direct Bilirubin (0.0-0.5) mg/dL AST (5-37) U/L ALT (0-40) U/L Alkaline Phosphatase (39-117) U/L Ammonia (13-55) umol/L Troponin I High Sens 7.7 (<3.5-35.0) ng/L Total Protein (6.5-8.0) g/dL Albumin (3.5-5.0) g/dL Lipase (8-78) U/L Procalcitonin 1.51 ng/mL TSH (0.32-4.0) uIU/mL Urine Color Urine Appearance Urine pH (5.0-8.0) Ur Specific [place] (1.005-1.025) Urine Protein (NEG-TRACE) MG/DL Urine Glucose (UA) (NEG) MG/DL Urine Ketones (NEG) MG/DL Urine Blood (NEG) Urine Nitrite (NEG) Ur Leukocyte Esterase (NEG) COVID-19 (PARVIZ) (Negative) COVID-19 Clin Com 10/24/20 10/24/20 10/24/20 Range/Units 15:03 15:03 15:47 WBC (4.8-10.8) X10*3/uL RBC (4.60-5.80) X10*6/uL Hgb (14.0-18.0) g/dl Hct (42-52) % MCV (80-98) fL MCH (27.0-33.0) pg MCHC (31.0-36.0) g/dl RDW (11.0-16.0) % Plt Count (160-400) X10*3/uL MPV (9.4-12.4) fL Immature Gran % (Auto) (0.0-0.4) % Neut % (Auto) (45-73) % Lymph % (Auto) (20-40) % [place] % (Auto) (2-11) % Eos % (Auto) (0-4) % Baso % (Auto) (0-2) % Lymph # (Auto) (1.2-4.9) X10*3/uL [place] # (Auto) (0.1-1.2) X10*3/uL Eos # (Auto) (0.0-0.4) X10*3/uL Baso # (Auto) (0.0-0.2) X10*3/uL Abs Immat Gran (auto) (0.00-0.03) X10*3/uL Absolute Neuts (auto) (2.0-8.3) X10*3/uL Absolute Nucleated RBC (0.0-0.012) X10*3/uL Nucleated RBC % (auto) (0.0-0.2) /100WBC PT (9.9-13.0) SEC INR (0.9-1.1) APTT (24.1-38.0) SEC Sodium (135-145) mmol/L Potassium (3.3-5.1) mmol/L Chloride (96-108) mmol/L Carbon Dioxide (22-29) mmol/L Anion Gap (12-20) BUN (9-16) mg/dL Creatinine (0.5-1.4) mg/dL Estim Creat Clear Calc Estimated GFR Random Glucose (60-115) mg/dL Lactic Acid (0.5-2.0) mmol/L Calcium (8.4-10.2) mg/dL Magnesium (1.6-2.6) mg/dL Total Bilirubin (0.0-1.0) mg/dL Direct Bilirubin (0.0-0.5) mg/dL AST (5-37) U/L ALT (0-40) U/L Alkaline Phosphatase (39-117) U/L Ammonia 15 (13-55) umol/L Troponin I High Sens (<3.5-35.0) ng/L Total Protein (6.5-8.0) g/dL Albumin (3.5-5.0) g/dL Lipase (8-78) U/L Procalcitonin ng/mL TSH (0.32-4.0) uIU/mL Urine Color DARK YELLOW Urine Appearance CLEAR Urine pH 6.0 (5.0-8.0) Ur Specific [place] 1.010 (1.005-1.025) Urine Protein NEG (NEG-TRACE) MG/DL Urine Glucose (UA) NEG (NEG) MG/DL Urine Ketones 5 (NEG) MG/DL Urine Blood NEG (NEG) Urine Nitrite NEG (NEG) Ur Leukocyte Esterase NEG (NEG) COVID-19 ([facility]VIZ) Negative (Negative) COVID-19 Clin Com See Note Discharge Plan Discharge Clinical Impression: Acidosis, lactic, Encephalopathy acute Pneumonia Qualifiers: Pneumonia type: due to unspecified organism Laterality: right Lung location: lower lobe of lung Qualified Code(s): J18.9 - Pneumonia, unspecified organism Leukocytosis Qualifiers: Leukocytosis type: unspecified Qualified Code(s): D72.829 - Elevated white b lood cell count, unspecified Patient Disposition: Admitted As Inpatient
[2020-10-24 14:32] VITALS: TEMP 37.1
[2020-10-24] MEDS: 0.9 % Sodium Chloride 1,000 ML 999 ML IVCONT ×2 (14:32→15:26)
[2020-10-24 14:42] VITALS: BP 122/51; PULSE 78
--- NOTE | 2020-10-24 14:48 | PHA.MEDREC ---
Pharmacy Consult ? Medication Reconciliation Pharmacy has completed the medication reconciliation.
[2020-10-24 15:14] LABS: MANUAL DIFF FLAG NO
[2020-10-24 15:26] LABS: Basophils Percent Auto 0.2 % (0-2); Hematocrit 31.3 % (42-52); Hemoglobin 10.6 g/dl (14.0-18.0); INTERNATIONAL NORM RATIO 1.1 (0.9-1.1); Imm Gran Abs Auto 0.05 X10*3/uL (0.00-0.03); Imm Gran Pct Auto 0.4 % (0.0-0.4); Lymphocytes Absolute Auto 1.6 X10*3/uL (1.2-4.9); Lymphocytes Percent Auto 12.1 % (20-40); Mean Corpuscular HGB Conc 33.9 g/dl (31.0-36.0); Mean Corpuscular Hemoglobin 33.8 pg (27.0-33.0); Mean Corpuscular Volume 99.7 fL (80-98); Mean Platelet Volume 10.6 fL (9.4-12.4); Monocytes Absolute Auto 0.8 X10*3/uL (0.1-1.2); Monocytes Percent Auto 5.9 % (2-11); Neutrophils Absolute Auto 10.5 X10*3/uL (2.0-8.3); Neutrophils Percent Auto 81.4 % (45-73); Platelet Count 131 X10*3/uL (160-400); Prothrombin Time 12.9 SEC (9.9-13.0); Red Blood Count 3.14 X10*6/uL (4.60-5.80); Red Cell Distribution Width 13.5 % (11.0-16.0); White Blood Count 12.9 X10*3/uL (4.8-10.8)
[2020-10-24 15:29] LABS: Partial Thromboplastin Time 36.2 SEC (24.1-38.0)
[2020-10-24 15:29] LABS: Ammonia 15 umol/L (13-55)
[2020-10-24 15:35] LABS: COVID-19 Test Negative (Negative)
[2020-10-24 15:36] VITALS: BP 133/52; PULSE 90; RESP 18; O2SAT 96
[2020-10-24 15:41] LABS: Lactic Acid 2.2 mmol/L (0.5-2.0)
[2020-10-24 15:58] LABS: Alanine Aminotransferase < 6 U/L (0-40); Albumin Level 3.4 g/dL (3.5-5.0); Alkaline Phosphatase 68 U/L (39-117); Anion Gap 13 (12-20); Aspartate Amino Transferase 9 U/L (5-37); Bilirubin Direct 0.3 mg/dL (0.0-0.5); Bilirubin Total 0.8 mg/dL (0.0-1.0); Blood Urea Nitrogen 26 mg/dL (9-16); Calcium 8.3 mg/dL (8.4-10.2); Carbon Dioxide 24 mmol/L (22-29); Chloride 105 mmol/L (96-108); Creatinine Clr Calc Pharmacy 46.2; Estimated Glomerular Filt Rate 51; Glucose Random 103 mg/dL (60-115); Lipase 5 U/L (8-78); Magnesium 2.1 mg/dL (1.6-2.6); Potassium 4.6 mmol/L (3.3-5.1); Sodium 137 mmol/L (135-145); Total Protein 6.2 g/dL (6.5-8.0)
[2020-10-24 15:59] LABS: Troponin-I High Sensitivity 7.7 ng/L (<3.5-35.0)
[2020-10-24 16:03] LABS: Glucose Urine UA NEG (NEG); Leukocyte Esterase Urine NEG (NEG); Nitrite Urine NEG (NEG); Urine Blood NEG (NEG); Urine Ketones 5 MG/DL (NEG); Urine Protein NEG (NEG-TRACE)
[2020-10-24] MEDS: cefEPime HCl 2 GM in 0.9 % Sodium Chloride 50 ML IV (16:03)
[2020-10-24 16:05] LABS: Appearance Urine CLEAR; Color Urine DARK YELLOW
[2020-10-24 16:15] LABS: Procalcitonin 1.51 ng/mL
[2020-10-24 16:16] LABS: TSH reflex Free T4 2.36 uIU/mL (0.32-4.0)
[2020-10-24 16:24] LABS: VBG Base Excess -3.1 mmol/L; VBG HCO3 21 mmol/L (22-26); VBG pCO2 34 mmHg; VBG pH 7.39 (7.32-7.43); VBG pO2 55 mmHg
[2020-10-24 16:25] LABS: Venous Blood Gas Refer to POC result
--- NOTE | 2020-10-24 16:35 | PC.NURSE ---
pt incontinent of large loose stool, pt cleaned up and clean hospital attire applied
--- NOTE | 2020-10-24 16:53 | PC.NURSE ---
pt pulled out his iv, started a new iv line in the right forearm, 20gage
--- NOTE | 2020-10-24 16:56 | P.HPHOSP_ITS ---
History of Present Illness Date of Service: 10/24/20 Chief Complaint: Hypotension 80 year old man [facility]. he has Parkinson's and unfortunately he was unable to give much information. Apparently blood [facility] 60s systolic. Apparently was also more confused. In the ER chest CT showed right lower lobe bronchopneumonia with large esophageal hernia, head CT showed no acute abnormality blood pressure initially was 100/50 however improved to 130 3/52 with IV fluids. His white blood cell count was noted to be elevated at 12.9 with no fever. Lactic acid 2.2. He was given a dose of vancomycin, Zosyn, IV fluids and cefepime. Will be admitted for further management and treatment of acute healthcare associated pneumonia. Review of Systems Review of Systems: Yes Unobtainable due to mental status ( Parkinson's disease) [facility] Medical History A-fib Anemia BPH (benign prostatic hyperplasia) CKD (chronic kidney disease) Eczema GERD (gastroesophageal reflux disease) HTN (hypertension) Hyperlipidemia Parkinsons Solar degeneration Pertinent family history: unable to abscess as patient has Parkinson's and he is unaccompanied Social History Alcohol intake: former Patient Tobacco Use Status: Former Tobacco user Use of substances other than those prescribed or required for medical reasons: No Advance Directives: No Advance Directives Information Provided: Yes Meds Allergies Allergy/AdvReac Type Severity Reaction Status Date / Time No Known Allergies Allergy Verified 07/05/20 22:25 Active Medications: Current Medications Generic Name Dose Route Start Last Admin Trade Name Freq PRN Reason Stop Dose Admin Acetaminophen 650 mg 10/24/20 16:49 Acetaminophen 325 Mg Tablet PO Q6H PRN Pain, Mild (Pain Scale 1-3) Vancomycin HCl 1,250 mg/ 250 mls @ 166.667 mls/hr 10/24/20 15:46 Sodium Chloride IV 10/24/20 17:15 ONCE ONE Vancomycin HCl 1,000 mg/ 270 mls @ 270 mls/hr 10/24/20 17:00 Sodium Chloride IV Q12H ESSIE Piperacillin Sod/Tazobactam 50 mls @ 100 mls/hr 10/24/20 17:00 Sod 3.375 gm/ Sodium Chloride IV Q6H ESSIE Ondansetron HCl 4 mg 10/24/20 16:49 Ondansetron Hcl 4 Mg/2 Ml Vial IVPUSH Q8H PRN Nausea and Vomiting Pharmacy Consult 1 each 10/24/20 14:04 Consult Rx Perform Med Rec MISCELLANE ONCE PRN Consult order Pharmacy Consult 1 each 10/24/20 16:49 Consult Rx Vancomycin Dosing MISCELLANE DAILY PRN Consult order Sodium Chloride 3 ml 10/25/20 00:00 0.9 % Sodium Chloride Flush 3 M[facility] Medications Medication Instructions Recorded Confirmed Last Taken Type aspirin 81 mg PO DAILY 10/24/20 10/24/20 10/24/20 History atorvastatin 40 mg PO BEDTIME 10/24/20 10/24/20 10/23/20 History carbidopa-levodopa 2 tab PO QID 10/24/20 10/24/20 10/24/20 History cholecalciferol (vitamin D3) 25 mcg PO DAILY 10/24/20 10/24/20 10/24/20 History clonidine HCl 0.1 mg PO DAILY@1200 10/24/20 10/24/20 Unknown History cyanocobalamin (vitamin B-12) 1,000 mcg PO DAILY 10/24/20 10/24/20 10/24/20 History docusate sodium 100 mg PO DAILY 10/24/20 10/24/20 10/24/20 History lactulose 30 ml PO DAILY 10/24/20 10/24/20 10/23/20 History metoprolol tartrate 25 mg PO DAILY@1200 10/24/20 10/24/20 Unknown History polyethylene glycol 3350 [Miralax] 8.5 g PO QPM 10/24/20 10/24/20 10/23/20 History sennosides [senna] 8.6 mg PO BID 10/24/20 10/24/20 10/23/20 History tamsulosin 0.4 mg PO BEDTIME 10/24/20 10/24/20 10/23/20 History Physical Exam Vital Signs and Narrative: Vital Signs: Last Vital Signs Temp 98.7 F 10/24/20 14:32 Pulse 90 10/24/20 15:36 Resp 18 10/24/20 15:36 BP 133/52 L 10/24/20 15:36 Pulse Ox 96 10/24/20 15:36 Body Mass Index 32.1 Appearing in no acute distress head is normocephalic atraumatic eyes pupils are PERRLA sclera is anicteric mouth throat mucous membranes are intact and moist neck is supple no lymphadenopathy, no JVD noted lung sounds are clear to auscultation/dim heart regular rate rhythm, clear S1, S2 positive bowel sounds, abdomen is soft, nontender neuro patient is alert confused Results Labs CBC and Chem 7: 10/24/20 15:02 10/24/20 15:02 Labs: Laboratory Results - last 24 hr 10/24/20 10/24/20 10/24/20 15:02 15:02 15:02 MCV 99.7 H MCH 33.8 H MCHC 33.9 RDW 13.5 Plt Count 131 L MPV 10.6 Immature Gran % (Auto) 0.4 Neut % (Auto) 81.4 H Lymph % (Auto) 12.1 L [place] % (Auto) 5.9 Eos % (Auto) 0.0 Baso % (Auto) 0.2 Lymph # (Auto) 1.6 [place] # (Auto) 0.8 Eos # (Auto) 0.0 Baso # (Auto) 0.0 Abs Immat Gran (auto) 0.05 H Absolute Neuts (auto) 10.5 H Absolute Nucleated RBC 0.000 Nucleated RBC % (auto) 0.0 PT 12.9 INR 1.1 APTT 36.2 VBG pH VBG pCO2 VBG pO2 VBG HCO3 VBG O2 Saturation VBG Base Excess Anion Gap 13 Estim Creat Clear Calc 46.2 Estimated GFR 51 Random Glucose 103 Lactic Acid Calcium 8.3 L Magnesium 2.1 Total Bilirubin 0.8 Direct Bilirubin 0.3 AST 9 ALT < 6 Alkaline Phosphatase 68 Ammonia Troponin I High Sens Total Protein 6.2 L Albumin 3.4 L Lipase 5 L Procalcitonin TSH 2.36 Urine Color Urine Appearance Urine pH Ur Specific [place] Urine Protein Urine Glucose (UA) Urine Ketones Urine Blood Urine Nitrite Ur Leukocyte Esterase COVID-19 ([facility]VIZ) COVID-19 Clin Com 10/24/20 10/24/20 10/24/20 15:02 15:02 15:02 MCV MCH MCHC RDW Plt Count MPV Immature Gran % (Auto) Neut % (Auto) Lymph % (Auto) [place] % (Auto) Eos % (Auto) Baso % (Auto) Lymph # (Auto) [place] # (Auto) Eos # (Auto) Baso # (Auto) Abs Immat Gran (auto) Absolute Neuts (auto) Absolute Nucleated RBC Nucleated RBC % (auto) PT INR APTT VBG pH VBG pCO2 VBG pO2 VBG HCO3 VBG O2 Saturation VBG Base Excess Anion Gap Estim Creat Clear Calc Estimated GFR Random Glucose Lactic Acid 2.2 H* Calcium Magnesium Total Bilirubin Direct Bilirubin AST ALT Alkaline Phosphatase Ammonia Troponin I High Sens 7.7 Total Protein Albumin Lipase Procalcitonin 1.51 TSH Urine Color Urine Appearance Urine pH Ur Specific [place] Urine Protein Urine Glucose (UA) Urine Ketones Urine Blood Urine Nitrite Ur Leukocyte Esterase COVID-19 (PARVIZ) COVID-Family Pet 10/24/20 10/24/20 10/24/20 15:03 15:03 15:47 MCV MCH MCHC RDW Plt Count MPV Immature Gran % (Auto) Neut % (Auto) Lymph % (Auto) [place] % (Auto) Eos % (Auto) Baso % (Auto) Lymph # (Auto) [place] # (Auto) Eos # (Auto) Baso # (Auto) Abs Immat Gran (auto) Absolute Neuts (auto) Absolute Nucleated RBC Nucleated RBC % (auto) PT INR APTT VBG pH VBG pCO2 VBG pO2 VBG HCO3 VBG O2 Saturation VBG Base Excess Anion Gap Estim Creat Clear Calc Estimated GFR Random Glucose Lactic Acid Calcium Magnesium Total Bilirubin Direct Bilirubin AST ALT Alkaline Phosphatase Ammonia 15 Troponin I High Sens Total Protein Albumin Lipase Procalcitonin TSH Urine Color DARK YELLOW Urine Appearance CLEAR Urine pH 6.0 Ur Specific [place] 1.010 Urine Protein NEG Urine Glucose (UA) NEG Urine Ketones 5 Urine Blood NEG Urine Nitrite NEG Ur Leukocyte Esterase NEG COVID-19 ([facility]Z) Negative COVID-[place]ou[place] Com See Note 10/24/20 16:15 MCV MCH MCHC RDW Plt Count MPV Immature Gran % (Auto) Neut % (Auto) Lymph % (Auto) [place] % (Auto) Eos % (Auto) Baso % (Auto) Lymph # (Auto) [place] # (Auto) Eos # (Auto) Baso # (Auto) Abs Immat Gran (auto) Absolute Neuts (auto) Absolute Nucleated RBC Nucleated RBC % (auto) PT INR APTT VBG pH 7.39 VBG pCO2 34 VBG pO2 55 VBG HCO3 21 L VBG O2 Saturation 82.0 VBG Base Excess -3.1 Anion Gap Estim Creat Clear Calc Estimated GFR Random Glucose Lactic Acid Calcium Magnesium Total Bilirubin Direct Bilirubin AST ALT Alkaline Phosphatase Ammonia Troponin I High Sens Total Protein Albumin Lipase Procalcitonin TSH Urine Color Urine Appearance Urine pH Ur Specific [place] Urine Protein Urine Glucose (UA) Urine Ketones Urine Blood Urine Nitrite Ur Leukocyte Esterase COVID-19 (PARVIZ) COVID-19 Clin Com Imaging Radiologist's Impressions: Impressions Chest X-Ray 10/24/20 14:05 IMPRESSION: Focus of density left base which may be related to atelectasis. Prominent calcified mitral annulus but without evidence of Head CT 10/24/20 14:27 IMPRESSION: 1. Moderate generalized atrophic changes with probable chronic periventricular white matter gliosis consistent with small vessel ischemic changes. Small pontine lacunar infarct. 2. No intracranial hemorrhage or hydrocephalus. 3. No visible acute territorial infarct. Chest CT 10/24/20 14:43 IMPRESSION: Right lower lobe bronchopneumonia. Severe atherosclerotic disease. Large esophageal hernia or intrathoracic stomach. Assessment and Plan (1) Pneumonia: Qualifiers: Laterality: right Lung location: lower lobe of lung Pneumonia type: due to unspecified organism Qualified Code(s): J18.9 - Pneumonia, unspecified organism Status: Acute 80-year-old man with history of Parkinson's dementia [facility] with healthcare associated pneumonia. Unfortunately he has dimension was unable to participate in the interview. Healthcare associated pneumonia. Continue vancomycin and Zosyn Follow cultures Supplemental oxygen as needed Leukocytosis and Lactic acidosis. Likely secondary to infection worst but no sepsis. Macrocytic anemia. No overt bleeding Follow CBC DVT prophylaxis with Lovenox Attending Dr. Flanagan DNR/DNI Quality Stroke Does the patient have a stroke diagnosis?: No VTE Prior VTE?: No VTE Risk Level:: Medical - moderate - high VTE Device Contraindication: Treatment Not Indicated VTE Drug Contraindication: N/A - Med Ordered
[2020-10-24 17:08] LABS: Reflex Lactate? Lactic Acid Added
[2020-10-24] MEDS: vancomycin HCL 1,250 MG in 0.9 % Sodium Chloride 250 ML 166.67 MG IV (17:08)
[2020-10-24 18:00] LABS: ~Lactic Acid-LAB USE ONLY 1.7 mmol/L (0.5-2.0)
--- NOTE | 2020-10-24 18:04 | P.EN_ITS ---
Event Note Date of Service: 10/24/20 Event Note: Patient seen examined case discussed with APC 80[facility] was sent to [place] ER due to hypotension systolic blood pressure in 60s in the emergency room CT showed some showed right lower lobe bronchopneumonia and Large esophageal hernia On examination patient unable to provide any meaningful history due to underlying dementia General no distress Lungs clear to auscultation no respiratory distress Extremities no edema Assessment and plan Pneumonia no sepsis continue IV antibiotic as per APC, follow blood cultures and clinical course .
[2020-10-24 18:34] VITALS: BP 102/52; PULSE 96; RESP 18; TEMP 36.7; O2SAT 96
[2020-10-24] MEDS: Piperacillin Sodium/Tazobactam 3.375 GM in 0.9 % Sodium Chloride 50 ML IV ×2 (19:09→23:48)
[2020-10-24] MEDS: Tamsulosin HCL 0.4 MG CAPSULE PO (20:12)
[2020-10-24] MEDS: Sennosides 8.6 MG TABLET PO (20:12)
[2020-10-24] MEDS: Carbidopa/Levodopa 25/100 TABLET 2 TAB PO (20:12)
[2020-10-24] MEDS: Atorvastatin Calcium 40 MG TABLET PO (20:12)
--- NOTE | 2020-10-24 20:18 | PC.NURSE ---
Medicated per JUN, pills crushed in applesauce.
--- NOTE | 2020-10-24 23:02 | PC.NURSE ---
called med/surge no answer on the floor at this time
[2020-10-24 23:37] VITALS: BP 138/62; PULSE 90; RESP 18; TEMP 36.6; O2SAT 98
[2020-10-24] MEDS: 0.9 % Sodium Chloride Flush 3 ML SYRINGE IVFLUSH (23:48)
[2020-10-25 03:16] VITALS: BP 134/50; PULSE 86; RESP 18; TEMP 37.1; O2SAT 94
[2020-10-25] MEDS: Piperacillin Sodium/Tazobactam 3.375 GM in 0.9 % Sodium Chloride 50 ML IV ×3 (05:29→17:29)
[2020-10-25 07:19] LABS: Basophils Percent Auto 0.2 % (0-2); Imm Gran Abs Auto 0.04 X10*3/uL (0.00-0.03); Imm Gran Pct Auto 0.4 % (0.0-0.4); MANUAL DIFF FLAG SCAN; Mean Corpuscular Volume 98.6 fL (80-98); Monocytes Absolute Auto 0.6 X10*3/uL (0.1-1.2); PLT CLUMP 1; SCAN SMEAR FLAG 1
[2020-10-25 07:21] LABS: Eosinophils Percent Auto 0.3 % (0-4); Hematocrit 28.1 % (42-52); Hemoglobin 9.4 g/dl (14.0-18.0); Lymphocytes Percent Auto 21.6 % (20-40); Mean Corpuscular HGB Conc 33.5 g/dl (31.0-36.0); Monocytes Percent Auto 6.6 % (2-11); Neutrophils Absolute Auto 6.6 X10*3/uL (2.0-8.3); Neutrophils Percent Auto 70.9 % (45-73); Platelet Count 110 X10*3/uL (160-400); Red Blood Count 2.85 X10*6/uL (4.60-5.80); Red Cell Distribution Width 13.7 % (11.0-16.0); White Blood Count 9.3 X10*3/uL (4.8-10.8)
--- NOTE | 2020-10-25 07:31 | HO.PM.IMPN ---
Subjective Subjective Date of Service: 10/25/20 Interval History: Pneumonia, toxic metabolic encephalopathy, Review of Systems Shortness of breath seems improving, less confused seems more awake. Says want to eat Denies any chest pain or abdominal pain or nausea or vomiting Physical Exam Vital Signs: Vital Signs: Last Vital Signs Temp 98.8 F 10/25/20 03:16 Pulse 86 10/25/20 03:16 Resp 18 10/25/20 03:16 BP 134/50 L 10/25/20 03:16 Pulse Ox 94 10/25/20 03:16 Body Mass Index 32.1 Physical exam: Cvs: rrr, [id number] , no murmur res: Air entry seems fair, diminished at bases. abd: no rebound or guarding ,nt, bs present. ext pulses present , no cyanosis neuro: axo2, nonfocal. Objective Data Current Medications Generic Name Dose Route Start Last Admin Trade Name Freq PRN Reason Stop Dose Admin Acetaminophen 650 mg 10/24/20 16:49 Acetaminophen 325 Mg Tablet PO Q6H PRN Pain, Mild (Pain Scale 1-3) Aspirin 81 mg 10/25/20 09:00 Aspirin 81 Mg Tab.Chew PO DAILY ESSIE Atorvastatin Calcium 40 mg 10/24/20 21:00 10/24/20 20:12 Atorvastatin Calcium 40 Mg Tablet PO 40 mg BEDTIME ESSIE Administration Carbidopa/Levodopa 2 tab 10/24/20 21:00 10/24/20 20:12 Carbidopa/Levodopa 25/100 Tablet PO 2 tab QID ESSIE Administration Cyanocobalamin 1,000 mcg 10/25/20 09:00 Cyanocobalamin (Vitamin B-12) 1,000 Mcg Tablet PO DAILY ESSIE Docusate Sodium 100 mg 10/25/20 09:00 Docusate Sodium 100 Mg Capsule PO DAILY ESSIE Piperacillin Sod/Tazobactam 50 mls @ 100 mls/hr 10/24/20 18:00 10/25/20 06:10 Sod 3.375 gm/ Sodium Chloride IV Infused Q6H ESSIE Infusion Vancomycin HCl 1,250 mg/ 250 mls @ 166.667 mls/hr 10/25/20 18:00 Sodium Chloride IV Q24H ESSIE Lactulose 20 gm 10/25/20 09:00 Lactulose 20 Gm/30 Ml Solution PO DAILY [facility] Metoprolol Tartrate 25 mg 10/25/20 12:00 Metoprolol Tartrate 25 Mg Tablet PO DAILY@1200 [facility] Protocol Ondansetron HCl 4 mg 10/24/20 16:49 Ondansetron Hcl 4 Mg/2 Ml Vial IVPUSH Q8H PRN Nausea and Vomiting Pharmacy Consult 1 each 10/24/20 14:04 Consult Rx Perform Med Rec MISCELLANE ONCE PRN Consult order Pharmacy Consult 1 each 10/24/20 16:49 Consult Rx Vancomycin Dosing MISCELLANE DAILY PRN Consult order Pharmacy Consult 1 each 10/25/20 07:27 Consult Rx Vancomycin Dosing MISCELLANE DAILY PRN Consult order Polyethylene Glycol 8.5 gm 10/24/20 18:00 10/24/20 19:10 Polyethylene Glycol 3350 17 Gm Powd.Pack PO Not Given DAILY@1800 [facility] Senna 8.6 mg 10/24/20 21:00 10/24/20 20:12 Sennosides 8.6 Mg Tablet PO 8.6 mg BID [facility] Administration Sodium Chloride 3 ml 10/25/20 00:00 10/24/20 23:48 0.9 % Sodium Chloride Flush 3 Ml Syringe IVFLUSH 3 ml QSHIFT [facility] Administration Tamsulosin HCl 0.4 mg 10/24/20 21:00 10/24/20 20:12 Tamsulosin Hcl 0.4 Mg Capsule PO 0.4 mg BEDTIME [facility] Administration Vitamin D 25 mcg 10/25/20 09:00 Cholecalciferol (Vitamin D3) 25 Mcg Tablet PO DAILY [facility] Labs CBC & Chem 7: 10/25/20 06:47 10/25/20 06:47 Labs: Laboratory Results - last 24 hr 10/24/20 10/24/20 10/24/20 15:02 15:02 15:02 WBC 12.9 H RBC 3.14 L Hgb 10.6 L Hct 31.3 L MCV 99.7 H MCH 33.8 H MCHC 33.9 RDW 13.5 Plt Count 131 L MPV 10.6 Immature Gran % (Auto) 0.4 Neut % (Auto) 81.4 H Lymph % (Auto) 12.1 L [place] % (Auto) 5.9 Eos % (Auto) 0.0 Baso % (Auto) 0.2 Lymph # (Auto) 1.6 [place] # (Auto) 0.8 Eos # (Auto) 0.0 Baso # (Auto) 0.0 Abs Immat Gran (auto) 0.05 H Absolute Neuts (auto) 10.5 H Absolute Nucleated RBC 0.000 Nucleated RBC % (auto) 0.0 PT 12.9 INR 1.1 APTT 36.2 VBG pH VBG pCO2 VBG pO2 VBG HCO3 VBG O2 Saturation VBG Base Excess Sodium 137 Potassium 4.6 Chloride 105 Carbon Dioxide 24 Anion Gap 13 BUN 26 H Creatinine 1.34 Estim Creat Clear Calc 46.2 Estimated GFR 51 Random Glucose 103 Lactic Acid Lactic Acid Fup @ 2Hr Calcium 8.3 L Magnesium 2.1 Total Bilirubin 0.8 Direct Bilirubin 0.3 AST 9 ALT < 6 Alkaline Phosphatase 68 Ammonia Troponin I High Sens Total Protein 6.2 L Albumin 3.4 L Lipase 5 L Procalcitonin TSH 2.36 Urine Color Urine Appearance Urine pH Ur Specific Adkins Urine Protein Urine Glucose (UA) Urine Ketones Urine Blood Urine Nitrite Ur Leukocyte Esterase COVID-19 (PARVIZ) COVID-PSafe 10/24/20 10/24/20 10/24/20 15:02 15:02 15:02 WBC RBC Hgb Hct MCV MCH MCHC RDW Plt Count MPV Immature Gran % (Auto) Neut % (Auto) Lymph % (Auto) [place] % (Auto) Eos % (Auto) Baso % (Auto) Lymph # (Auto) [place] # (Auto) Eos # (Auto) Baso # (Auto) Abs Immat Gran (auto) Absolute Neuts (auto) Absolute Nucleated RBC Nucleated RBC % (auto) PT INR APTT VBG pH VBG pCO2 VBG pO2 VBG HCO3 VBG O2 Saturation VBG Base Excess Sodium Potassium Chloride Carbon Dioxide Anion Gap BUN Creatinine Estim Creat Clear Calc Estimated GFR Random Glucose Lactic Acid 2.2 H* Lactic Acid Fup @ 2Hr Calcium Magnesium Total Bilirubin Direct Bilirubin AST ALT Alkaline Phosphatase Ammonia Troponin I High Sens 7.7 Total Protein Albumin Lipase Procalcitonin 1.51 TSH Urine Color Urine Appearance Urine pH Ur Specific Adkins Urine Protein Urine Glucose (UA) Urine Ketones Urine Blood Urine Nitrite Ur Leukocyte Esterase COVID-19 (PARVIZ) COVID-19 [employer] 10/24/20 10/24/20 10/24/20 15:03 15:03 15:47 WBC RBC Hgb Hct MCV MCH MCHC RDW Plt Count MPV Immature Gran % (Auto) Neut % (Auto) Lymph % (Auto) [place] % (Auto) Eos % (Auto) Baso % (Auto) Lymph # (Auto) [place] # (Auto) Eos # (Auto) Baso # (Auto) Abs Immat Gran (auto) Absolute Neuts (auto) Absolute Nucleated RBC Nucleated RBC % (auto) PT INR APTT VBG pH VBG pCO2 VBG pO2 VBG HCO3 VBG O2 Saturation VBG Base Excess Sodium Potassium Chloride Carbon Dioxide Anion Gap BUN Creatinine Estim Creat Clear Calc Estimated GFR Random Glucose Lactic Acid Lactic Acid Fup @ 2Hr Calcium Magnesium Total Bilirubin Direct Bilirubin AST ALT Alkaline Phosphatase Ammonia 15 Troponin I High Sens Total Protein Albumin Lipase Procalcitonin TSH Urine Color DARK YELLOW Urine Appearance CLEAR Urine pH 6.0 Ur Specific Adkins 1.010 Urine Protein NEG Urine Glucose (UA) NEG Urine Ketones 5 Urine Blood NEG Urine Nitrite NEG Ur Leukocyte Esterase NEG COVID-19 (PARVIZ) Negative COVID-19 Andel Com See Note 10/24/20 10/24/20 16:15 17:26 WBC RBC Hgb Hct MCV MCH MCHC RDW Plt Count MPV Immature Gran % (Auto) Neut % (Auto) Lymph % (Auto) [place] % (Auto) Eos % (Auto) Baso % (Auto) Lymph # (Auto) [place] # (Auto) Eos # (Auto) Baso # (Auto) Abs Immat Gran (auto) Absolute Neuts (auto) Absolute Nucleated RBC Nucleated RBC % (auto) PT INR APTT VBG pH 7.39 VBG pCO2 34 VBG pO2 55 VBG HCO3 21 L VBG O2 Saturation 82.0 VBG Base Excess -3.1 Sodium Potassium Chloride Carbon Dioxide Anion Gap BUN Creatinine Estim Creat Clear Calc Estimated GFR Random Glucose Lactic Acid Lactic Acid Fup @ 2Hr 1.7 Calcium Magnesium Total Bilirubin Direct Bilirubin AST ALT Alkaline Phosphatase Ammonia Troponin I High Sens Total Protein Albumin Lipase Procalcitonin TSH Urine Color Urine Appearance Urine pH Ur Specific Adkins Urine Protein Urine Glucose (UA) Urine Ketones Urine Blood Urine Nitrite Ur Leukocyte Esterase COVID-19 (PARVIZ) COVID-19 Clin Com Quality Stroke Does the patient have a stroke diagnosis?: No VTE Prior VTE?: No VTE Risk Level:: Medical - moderate - high VTE Device Contraindication: Treatment Not Indicated VTE Drug Contraindication: N/A - Med Ordered Assessment and Plan (1) Acidosis, lactic: Status: Acute (2) Pneumonia: Status: Acute (3) Encephalopathy acute: Status: Acute (4) Leukocytosis: Status: Acute Assessment and Plan: 80-year-old man with history of Parkinson's dementia [facility] with [facility]. Unfortunately he has dimension was unable to participate in the interview. 1.Healthcare associated pneumonia. Toxic metabolic encephalopathy probably related to pneumonia. Seems improving Continue vancomycin and Zosyn Follow cultures Vanco trough Supplemental oxygen as needed 2.Leukocytosis and Lactic acidosis. Likely secondary to infection worst but no sepsis. Lactic acid and leukocytosis seems improved. 3.Macrocytic anemia. No overt bleeding Follow CBC DVT prophylaxis with Lovenox DNR/DNI
[2020-10-25 07:49] VITALS: BP 171/74; PULSE 76; RESP 18; TEMP 36.3; O2SAT 96
[2020-10-25 07:50] LABS: SLIDE REVIEW VERIFIED
[2020-10-25 07:58] LABS: Anion Gap 13 (12-20); Blood Urea Nitrogen 26 mg/dL (9-16); Calcium 8.3 mg/dL (8.4-10.2); Carbon Dioxide 19 mmol/L (22-29); Chloride 109 mmol/L (96-108); Creatinine Clr Calc Pharmacy 53.3; Estimated Glomerular Filt Rate > 60; Glucose Random 92 mg/dL (60-115); Potassium 4.3 mmol/L (3.3-5.1); Sodium 137 mmol/L (135-145)
[2020-10-25] MEDS: Aspirin 81 MG TAB.CHEW PO (08:05)
[2020-10-25] MEDS: Docusate Sodium 100 MG CAPSULE PO (08:05)
[2020-10-25] MEDS: Cholecalciferol (Vitamin D3) 25 MCG TABLET PO (08:05)
[2020-10-25] MEDS: Cyanocobalamin (Vitamin B-12) 1,000 MCG TABLET 1000 MCG PO (08:05)
[2020-10-25] MEDS: 0.9 % Sodium Chloride Flush 3 ML SYRINGE IVFLUSH ×3 (08:05→21:23)
[2020-10-25] MEDS: Carbidopa/Levodopa 25/100 TABLET 2 TAB PO ×4 (08:05→21:22)
[2020-10-25] MEDS: Lactulose 20 GM/30 ML SOLUTION PO (08:05)
[2020-10-25] MEDS: Sennosides 8.6 MG TABLET PO ×2 (08:05→21:22)
--- NOTE | 2020-10-25 09:40 | MHC.CM.PN ---
IMM 10/25/2020, EMR REVIEWED, PT ADMITTED W/HCAP, CM MET W/PT WHO WAS UNABLE TO ANSWER MOST QUESTIONS CORRECTLY, CM CONTACTED [facility] TO OBTAIN MORE RECORDS, PT SPOKE W/GEMINI PT'S [employer] CONSULTANT GEMINI AT 9:30AM [phone], PER GEMINI'S REQUEST CM WILL FAX H&P AND XRAY REPORTS TO [phone], GEMINI REPORTED PT LIVES IN LTC NOT IN ASSISTED LIVING, IS MAINLY WC BOUND, PT WAS WALKING W/GAIT BELT W/ONE STAFF HOWEVER DUE TO FLUCTUATING BP PT HAS NOT BEEN WALKING LATELY, ALSO PT HAD A MODIFIED BARIUM SWALLOW AT [facility] [place] 3 WKS AGO AND PT IS ON MECHANICAL GROUND W/PUREED FRUITS AND VEGGIES W/THIN LIQUIDS, GEMINI WAS ALSO ABLE TO VERIFY HCP, COPY REQUESTED VIA FAX. D/C PLAN: RETURN TO [facility], BLS TRANSPORT HCP: JIMMIE CAMILO (DTR) [phone] ALTRENATE: YONI CAMILO [phone] PCP: HEATHER STAUFFER
[2020-10-25 11:31] VITALS: BP 158/65; PULSE 98; RESP 16; TEMP 36.6; O2SAT 97
[2020-10-25] MEDS: Metoprolol Tartrate 25 MG TABLET PO (12:00)
[2020-10-25] MEDS: Metoclopramide HCl 5 MG TABLET PO (12:00)
[2020-10-25] MEDS: Pantoprazole Sodium 40 MG/10 ML VIAL IVPUSH (12:00)
[2020-10-25 15:59] VITALS: BP 182/93; PULSE 67; RESP 14; TEMP 36.6; O2SAT 100
[2020-10-25] MEDS: polyethylene glycoL 3350 17 GM POWD.PACK 8.5 GM PO (17:28)
[2020-10-25] MEDS: vancomycin HCL 1,250 MG in 0.9 % Sodium Chloride 250 ML 166.67 MG IV (18:02)
[2020-10-25 20:00] VITALS: BP 191/70; PULSE 65; RESP 17; TEMP 36.8; O2SAT 97
[2020-10-25] MEDS: Atorvastatin Calcium 40 MG TABLET PO (21:22)
[2020-10-25] MEDS: Tamsulosin HCL 0.4 MG CAPSULE PO (21:23)
[2020-10-25 23:30] VITALS: BP 144/74; PULSE 100; RESP 18; TEMP 36.2; O2SAT 88
[2020-10-26] MEDS: Piperacillin Sodium/Tazobactam 3.375 GM in 0.9 % Sodium Chloride 50 ML IV ×3 (01:09→12:01)
[2020-10-26 02:58] VITALS: BP 140/68; PULSE 78; RESP 18; TEMP 36.1; O2SAT 95
[2020-10-26] MEDS: Pantoprazole Sodium 40 MG/10 ML VIAL IVPUSH (05:39)
[2020-10-26 07:54] VITALS: BP 143/82; PULSE 90; RESP 18; TEMP 36.7; O2SAT 99
[2020-10-26] MEDS: Lactulose 20 GM/30 ML SOLUTION PO (08:57)
[2020-10-26] MEDS: Sennosides 8.6 MG TABLET PO (08:58)
[2020-10-26] MEDS: 0.9 % Sodium Chloride Flush 3 ML SYRINGE IVFLUSH ×2 (08:58→15:42)
[2020-10-26] MEDS: Carbidopa/Levodopa 25/100 TABLET 2 TAB PO ×3 (08:58→17:36)
[2020-10-26] MEDS: Docusate Sodium 100 MG CAPSULE PO (08:58)
[2020-10-26] MEDS: Aspirin 81 MG TAB.CHEW PO (08:58)
[2020-10-26] MEDS: Cyanocobalamin (Vitamin B-12) 1,000 MCG TABLET 1000 MCG PO (08:58)
[2020-10-26] MEDS: Cholecalciferol (Vitamin D3) 25 MCG TABLET PO (08:58)
[2020-10-26 11:52] VITALS: BP 119/56; PULSE 63; RESP 16; TEMP 36.4; O2SAT 98
[2020-10-26 12:01] VITALS: BP 119/56; PULSE 63
[2020-10-26] MEDS: Metoprolol Tartrate 25 MG TABLET PO (12:01)
--- NOTE | 2020-10-26 14:53 | MHC.CM.PN ---
PT TO BE DCD TODAY AT 5;00 BY AMB TO [facility]
--- NOTE | 2020-10-26 15:24 | P.DS_ITS ---
DS: Providers Provider Date of Service: 10/26/20 Date of admission: 10/24/20 16:50 Primary care physician: Suman Hernandez MD DS: Diagnosis Discharge Diagnosis (1) Acidosis, lactic: Status: Acute (2) Pneumonia: Status: Acute (3) Encephalopathy acute: Status: Acute (4) Leukocytosis: Status: Acute DS: Medications Discharge Medications Home Medications: Home Medications Medication Instructions Recorded Confirmed aspirin 81 mg PO DAILY 10/24/20 10/24/20 atorvastatin 40 mg PO BEDTIME 10/24/20 10/24/20 carbidopa-levodopa 2 tab PO QID 10/24/20 10/24/20 cholecalciferol (vitamin D3) 25 mcg PO DAILY 10/24/20 10/24/20 clonidine HCl 0.1 mg PO DAILY@1200 10/24/20 10/24/20 cyanocobalamin (vitamin B-12) 1,000 mcg PO DAILY 10/24/20 10/24/20 docusate sodium 100 mg PO DAILY 10/24/20 10/24/20 lactulose 30 ml PO DAILY 10/24/20 10/24/20 metoprolol tartrate 25 mg PO DAILY@1200 10/24/20 10/24/20 polyethylene glycol 3350 [Miralax] 8.5 g PO QPM 10/24/20 10/24/20 sennosides [senna] 8.6 mg PO BID 10/24/20 10/24/20 tamsulosin 0.4 mg PO BEDTIME 10/24/20 10/24/20 Previous Rx's Medication Instructions Recorded amoxicillin-pot clavulanate 1 tab PO BID #10 tab 10/26/20 [Augmentin] doxycycline monohydrate 100 mg PO BID #10 cap 10/26/20 DS: Summary Hospital Course Hospital Course: 80 year [facility]. he has Parkinson's and unfortunately he was unable to give much information. Apparently blood pressures [facility] were 60s systolic. Apparently was also more confused. In the ER chest CT showed right lower lobe bronchopneumonia with large esophageal hernia, head CT showed no acute abnormality blood pressure initially was 100/50 however improved to 130 3/52 with IV fluids. His white blood cell count was noted to be elevated at 12.9 with no fever. Lactic acid 2.2. He was given a dose of vancomycin, Zosyn, IV fluids and cefepime. Will be admitted for further management and treatment of acute healthcare associated pneumonia. Hospital course: Patient with treated with toxic metabolic encephalopathy secondary to pneumonia. Patient was started on IV antibiotics seems to be improved near his baseline. Mental status hodgson [facility] seems to be near his baseline. [facility] Augmentin and doxy please complete the course of antibiotic. Patient initially had Leukocytosis and Lactic acidosis. Likely secondary to infection worst but no sepsis. Lactic acid and leukocytosis seems improved with above management . He in addition Macrocytic anemia. No overt bleeding 9.5-10 range. Follow CBC Please repeat CBC BMP in 1 week and also repeat chest imaging in 3-4 weeks to see resolution of pneumonia. Further management as per [facility]. Assessment upon managed at time spent 50 minutes . Significant findings: As above. Procedures performed: None. Treatment and response: As above. Complications: None. Time Spent with Patient Time attestation: Total time spent providing and/or coordinating discharge services: Discharge coordination time: Greater than 30 minutes Quality: Stroke Does the patient have a stroke diagnosis?: No Physical Exam Vital Signs: Vital Signs: Last Vital Signs Temp 97.6 F 10/26/20 11:52 Pulse 63 10/26/20 12:01 Resp 16 10/26/20 11:52 BP 119/56 L 10/26/20 12:01 Pulse Ox 98 10/26/20 11:52 Body Mass Index 32.1 Physical exam: Constitutional: Not in acute distress. Lying comfortably in the bed. Neck: Supple Cvs: rrr, [id number] , no murmur res: Grossly fair entry, no rales or wheezing.. abd: no rebound or guarding ,nt, bs present. ext pulses present , no cyanosis neuro: axo2, nonfocal. DS: Data Data Completed and Pending Labs on day of discharge: Preliminary micro results at discharge 10/24/20 15:03 Blood Culture - Preliminary Blood - Venous No growth after 24 hours. 10/24/20 15:03 Blood Culture - Preliminary Blood - Venous No growth after 24 hours. Discharge Plan Discharge Patient Disposition: [facility] Discharge Diagnosis: Possible pneumonia, toxic metabolic encephalopathy Referrals: [facility] [Other] - 1 Week Suman Hernandez MD [Primary Care Provider] - 1 Week Discharge Medications: New amoxicillin-pot clavulanate [Augmentin] 875-125 mg tablet 1 tab PO BID Qty: 10 RF: 0 doxycycline monohydrate 100 mg capsule 100 mg PO BID Qty: 10 RF: 0 Continued clonidine HCl 0.1 mg Tablet 0.1 mg PO DAILY@1200 RF: 0 atorvastatin 40 mg Tablet 40 mg PO BEDTIME RF: 0 sennosides [senna] 8.6 mg Tablet 8.6 mg PO BID RF: 0 cyanocobalamin (vitamin B-12) 1,000 mcg Tablet 1,000 mcg PO DAILY RF: 0 tamsulosin 0.4 mg Capsule 0.4 mg PO BEDTIME RF: 0 docusate sodium 100 mg Capsule 100 mg PO DAILY RF: 0 aspirin 81 mg Tablet,Chewable 81 mg PO DAILY RF: 0 polyethylene glycol 3350 [Miralax] 17 gram/dose Powder 8.5 g PO QPM RF: 0 carbidopa-levodopa 25-100 mg Tablet 2 tab PO QID RF: 0 metoprolol tartrate 25 mg Tablet 25 mg PO DAILY@1200 RF: 0 lactulose 10 gram/15 mL Solution 30 ml PO DAILY RF: 0 cholecalciferol (vitamin D3) 25 mcg (1,000 unit) Tablet 25 mcg PO DAILY RF: 0 Discharge Orders: Discharge Order (Routine); Ordered 10/26/20 Ordered By: Randy Almanza Diet: advance to usual diet Activity on Discharge: As tolerated Stand Alone Forms: Patient Portal Discharge page Care Plan Goals: Patient with treated with toxic metabolic encephalopathy secondary to pneumonia. Patient was started on IV antibiotics seems to be improved near his baseline. Mental status hodgson [facility] seems to be near his baseline. [facility] Augmentin and doxy please complete the course of antibiotic. Please repeat CBC BMP in 1 week and also repeat chest imaging in 3-4 weeks to see resolution of pneumonia. Further management [facility]. Health Concerns: as above. Plan of Treatment: as above. Assessment: as above. Discharge Date/Time: 10/26/20 20:36
--- NOTE | 2020-10-26 15:24 | MHC.CM.PN ---
pts daughter daria notified of dc
[2020-10-26] MEDS: Amoxicillin/Potassium Clav 875 MG TABLET PO (15:41)
[2020-10-26 16:00] VITALS: BP 172/78; PULSE 68; RESP 14; TEMP 36.4; O2SAT 99
[2020-10-26] MEDS: polyethylene glycoL 3350 17 GM POWD.PACK 8.5 GM PO (17:37)
[2020-10-26 17:45] LABS: Vancomycin Trough 10.5 mcg/mL (10.0-20.0)
== END 2020-10-26 20:36 | disposition skilled nursing facility (03) | DRG 193 ==
LOC: HO.ED 15:58 → HO.EDOVER 17:16 → HO.S3 22:46
PROVIDERS: Admitting Provider Nurse Practitioner Acute Care; Emergency Provider Emergency Medicine; PCP Internal Medicine; Visit Provider Internal Medicine
DX: J18.9 Pneumonia, unspecified organism (principal); G92 Toxic encephalopathy; E87.2 Acidosis; D72.829 Elevated white blood cell count, unspecified; G20 Parkinson's disease; F02.80 Dementia in other diseases classified elsewhere, unspecified severity, without behavioral disturbance, psychotic disturbance, mood disturbance, and anxiety; I45.10 Unspecified right bundle-branch block; K44.9 Diaphragmatic hernia without obstruction or gangrene; D64.9 Anemia, unspecified; I95.9 Hypotension, unspecified; Z20.822 Contact with and (suspected) exposure to COVID-19; Z87.891 Personal history of nicotine dependence; Z79.82 Long term (current) use of aspirin; Z79.899 Other long term (current) drug therapy; Z66 Do not resuscitate
CPT/HCPCS: 36415; 70450; 71045; 71250; 80048; 80076; 80202; 81003; 82140; 82803; 83605; 83690; 83735; 84145; 84443; 84484; 85025; 85610; 85730; 87040; 87635; 93005; 99285; J0692; J2543; J3370

== ENCOUNTER 2020-11-13 17:58 | Inpatient (IN) | payer OTHER, SELFPAY ==
[2020-11-13] VITALS (7 sets, daily range): BP systolic 104–154; BP diastolic 63–83; PULSE 80–97; RESP 0–24; TEMP 36.6–36.7; O2SAT 55–100; BMI 22.8
--- NOTE | ~2020-11-13 | XR_ITS ---
EXAMINATION: XR CHEST CLINICAL INFORMATION: Shortness of breath. COMPARISON: Most recent chest CT dated 10/24/2020. TECHNIQUE: Frontal view of the chest was obtained. FINDINGS: No focal airspace consolidation. No pleural effusion or pneumothorax. Stable cardiac mediastinal silhouette. Previously seen bilateral posterior lower lobe airspace opacities not seen on the current examination. No acute osseous abnormality. XR/XR chest 1V IMPRESSION: No acute cardiopulmonary findings.
--- NOTE | ~2020-11-13 | CT_ITS ---
EXAMINATION: CT ANGIOGRAM OF THE CHEST WITH AND WITHOUT CONTRAST (CT PULMONARY ANGIOGRAM FOR PE) CLINICAL INFORMATION: Shortness of breath. Elevated d-dimer. Evaluate for a pulmonary embolism. COMPARISON: CT chest dated 10/24/2020 and chest radiograph done earlier the same day. TECHNIQUE: Prior to contrast administration, noncontrast localization images were obtained. Subsequently, multidetector volumetric imaging was performed from the thoracic inlet to below the diaphragms following the administration of 60 mL Omnipaque 350 intravenous contrast. No contrast reaction reported Sagittal, coronal, and MIP oblique sagittal reformatted images were obtained on the CT workstation, uploaded to PACS, and reviewed. This CT examination was performed using dose optimization techniques as appropriate, variously including the following: *Automated exposure control *Adjustment of mA and/or kV according to patient size (this includes techniques or standardized protocols for targeted exams where dose is matched to indication/reason for exam; i.e. extremities or head) *Use of iterative reconstruction technique Total exam dose-length product 485 mGy-cm FINDINGS: QUALITY OF STUDY/CONTRAST BOLUS: Satisfactory. PULMONARY ARTERIES: No central or segmental pulmonary emboli. THORACIC AORTA: No thoracic aortic dissection or dilatation. Prominent atherosclerotic calcifications. LUNG: There are patchy bibasilar airspace opacities, which could represent atelectasis versus early infiltrates. Findings are decreased when compared to the prior chest CT. There is a new nodular density within the right middle lobe adjacent to the right hilum measuring up to 0.8 cm (see axial image [id number]). Additional somewhat nodular densities are seen posterior to the right hilum in the region of previously seen more confluent airspace consolidations. No new large pulmonary mass. The central airways are patent. PLEURA: No pleural effusion or pneumothorax. MEDIASTINUM: No cardiomegaly. No pericardial effusion. Stable mildly prominent superior mediastinal lymph nodes. No new or increasing lymphadenopathy. No evidence of septal bowing or right heart strain. CHEST WALL/AXILLA: No axillary or internal mammary lymphadenopathy. OSSEOUS STRUCTURES: No acute or suspicious osseous abnormality. UPPER ABDOMEN: Large hiatal hernia, unchanged. Otherwise, the visualized upper abdominal structures are unremarkable. No reflux of contrast into the hepatic veins to suggest elevated right heart pressures. CT/CT angio chest PE protocol IMPRESSION: 1. No central or segmental pulmonary embolism. 2. Patchy bibasilar airspace opacities, decreased when compared to the recent chest CT. 3. New nodular density adjacent to the right hilum. Given short interval development of this nodular focus, this likely represents an infectious or inflammatory process. 4. Stable mildly prominent superior mediastinal lymph nodes. No new or increasing lymphadenopathy. 5. Large hiatal hernia, unchanged. VTE: negative
--- NOTE | 2020-11-13 18:19 | ECG_ITS ---
Test Reason : UNRESPOSIVE Blood Pressure : / mmHG Vent. Rate : 093 BPM Atrial Rate : 312 BPM P-R Int : 000 ms QRS Dur : 164 ms QT Int : 418 ms P-R-T Axes : 000 -72 043 degrees QTc Int : 519 ms Atrial flutter with variable A-V block Right bundle branch block Left anterior fascicular block Bifascicular block Septal infarct (cited on or before 05-JUL-2020) Abnormal ECG When compared with ECG of 24-OCT-2020 16:50, Atrial flutter has replaced Sinus rhythm Questionable change in initial forces of Septal leads Referred By: Cristina Montejo Electronically Signed By:SHARRI BAUM MD
--- NOTE | 2020-11-13 18:21 | ED_ITS ---
HPI - SOB/Dyspnea General Chief Complaint: Altered Mental Status Stated Complaint: WEAKNESS Time Seen by Provider: 11/13/20 18:19 Source: patient, EMS and RN notes reviewed Mode of arrival: EMS Limitations: no limitations History of Present Illness HPI Narrative: 80-year-old female came in from [facility], patient mostly bed ridden, DNR/DNI, was sent from [facility] for evaluation of short time of difficulty breathing, tachycardia, tachypnea. Patient recently with pneumonia. As per PCP Dr. aBrreto patient now years more stable, back to his normal baseline. No acute apparent distress. Related Data Home Medications Medication Instructions Recorded Confirmed aspirin 81 mg chewable tablet 81 mg PO DAILY 10/24/20 10/24/20 atorvastatin 40 mg tablet 40 mg PO BEDTIME 10/24/20 10/24/20 carbidopa 25 mg-levodopa 100 mg 2 tab PO QID 10/24/20 10/24/20 tablet cholecalciferol (vitamin D3) 25 25 mcg PO DAILY 10/24/20 10/24/20 mcg (1,000 unit) tablet clonidine HCl 0.1 mg tablet 0.1 mg PO DAILY@1200 10/24/20 10/24/20 cyanocobalamin (vitamin B-12) 1,000 mcg PO DAILY 10/24/20 10/24/20 1,000 mcg tablet docusate sodium 100 mg capsule 100 mg PO DAILY 10/24/20 10/24/20 lactulose 10 gram/15 mL oral 30 ml PO DAILY 10/24/20 10/24/20 solution metoprolol tartrate 25 mg tablet 25 mg PO DAILY@1200 10/24/20 10/24/20 polyethylene glycol 3350 17 8.5 g PO QPM 10/24/20 10/24/20 gram/dose oral powder (Miralax) sennosides 8.6 mg tablet (senna) 8.6 mg PO BID 10/24/20 10/24/20 tamsulosin 0.4 mg capsule 0.4 mg PO BEDTIME 10/24/20 10/24/20 Previous Rx's Medication Instructions Recorded amoxicillin 875 mg-potassium 1 tab PO BID #10 tab 10/26/20 clavulanate 125 mg tablet (Augmentin) doxycycline monohydrate 100 mg 100 mg PO BID #10 cap 10/26/20 capsule Allergies Allergy/AdvReac Type Severity Reaction Status Date / Time No Known Allergies Allergy Verified 07/05/20 22:25 Review of Systems Review of Systems: All other systems are reviewed and are negative Constitutional: Reports as per HPI and Reports no additional constitutional complaints Eyes: Reports as per HPI and Reports no additional eye complaints Reports system reviewed and no additional complaints, except as documented Cardiovascular: Reports as per HPI and Reports no additional cardiovascular complaints Respiratory: Reports as per HPI and Reports no additional respiratory complaints Gastrointestinal: Reports as per HPI and Reports no additional gastrointestinal complaints Genitourinary: Reports no additional female genitourinary complaints Musculoskeletal: Reports no additional musculoskeletal complaints Skin/Breast: Reports system reviewed and no additional complaints, except as docu Psychiatric: Reports no additional psychiatric complaints Endocrine: Reports no additional endocrine complaints Hematologic/Lymphatic: Reports no additional hematologic/lymphatic complaints Allergic/Immunologic: Reports no additional allergic/immunologic complaints Reports system reviewed and no additional complaints, except as documented and Reports Abnormal speech present [facility] Past Medical History Medical History A-fib Anemia BPH (benign prostatic hyperplasia) CKD (chronic kidney disease) Eczema GERD (gastroesophageal reflux disease) HTN (hypertension) Hyperlipidemia Parkinsons Solar degeneration Social History Social History Household Members: None Housing: Assisted Living Facility Do you presently have visiting nurse or other home services: Yes Unable to assess alcohol history related to: Unknown Alcohol intake: unknown Patient Tobacco Use Status: Former Tobacco user Use of substances other than those prescribed or required for medical reasons: Unknown Advance Directives: No Advance Directives Information Provided: Yes service: Yes Current occupational status: retired Physical Exam Vital Signs: Vital Signs: Last Vital Signs Temp 97.9 F 11/13/20 21:28 Pulse 97 11/13/20 23:52 Resp 24 H 11/13/20 23:52 BP 110/63 11/13/20 23:52 Pulse Ox 100 11/13/20 23:52 Body Mass Index 22.8 Vital signs have been reviewed as appeared to be correct. Blood pressure normal. Heart rate normal. Respiration rate normal. Temperature normal. Oxygen saturation normal. Appearance: No acute distress. Head: Normal external exam. Normocephalic. Atraumatic. No [place] signs noted. No raccoon eyes noted Eyes: PERRLA. EOMI. Conjunctiva and sclera normal. Eyelids normal. ENT: TM's Normal. Pharynx normal. Uvula midline. Moist mucous membranes. No trismus noted. No drooling noted. No muffled voice noted. Neck: Normal inspection. Neck supple. FROM. No adenopathy. Thyroid Normal. No meningeal signs. No neck mass noted. CVS: Normal heart rate and rhythm. Heart sound normal. No murmurs noted. Pulses normal throughout. Respiratory: No respiratory distress. Painless inspiration. Breath sounds normal. No wheezes/rales/rhonchi noted. Chest nontender. No accessory muscle usage noted or decreased air movement noted. Abdomen: Soft and nontender. Bowel sounds normal in all 4 quadrants. No distention noted. No organomegaly noted. No visible injury noted. Back: No CVA tenderness. Full range of motion noted. Skin: Skin warm and dry. Normal skin color. Normal skin turgor. No rashes/lesions/lacerations noted. Extremities: No lower extremity edema. Extremities exhibit normal range of motion. Extremities nontender. Neuro: Awake, oriented Cranial nerve exam: II-XII are grossly intact No motor deficit. No sensory deficit. Reflexes normal. Course Course Course Narrative: Assessment and plan. 80-year-old male came in from [facility] patient is a DNR/DNI was sent for further evaluation of having an episode of shortness of breath and tachycardia and became hypoxic, improved after patient was placed on 6 L of oxygen via nasal cannula, patient emergency department seen by Dr. Barreto (his PCP at the [facility]) who stated that patient is back to his baseline. Because of elevation of D-dimer patient had CT angiogram of the chest which showed no PE. Patient also has unremarkable troponin x2. Patient was on the monitor while he is in the emergency department has been stable with stable vital signs. CT of the chest showed patchy bibasilar airspace opacities which improved from recent chest CT. EKG showed new onset of atrial flutter with good rate control. Will admit for cardiac monitoring overnight. MDM - SOB/Dyspnea Medical Records Attestation: I reviewed the patient's medical records. Lab Data Attestation: I reviewed the patient's lab results. Result diagrams: 11/13/20 18:29 11/13/20 18:29 Labs: Lab Results 11/13/20 11/13/20 11/13/20 Range/Units 18:29 18:29 18:29 WBC 5.3 (4.8-10.8) X10*3/uL RBC 3.21 L (4.60-5.80) X10*6/uL Hgb 10.6 L (14.0-18.0) g/dl Hct 32.2 L (42-52) % MCV 100.3 H (80-98) fL MCH 33.0 (27.0-33.0) pg MCHC 32.9 (31.0-36.0) g/dl RDW 13.7 (11.0-16.0) % Plt Count 182 D (160-400) X10*3/uL MPV 10.5 (9.4-12.4) fL Immature Gran % (Auto) 0.8 H (0.0-0.4) % Neut % (Auto) 82.3 H (45-73) % Lymph % (Auto) 10.6 L (20-40) % [place] % (Auto) 6.1 (2-11) % Eos % (Auto) 0.0 (0-4) % Baso % (Auto) 0.2 (0-2) % Lymph # (Auto) 0.6 L (1.2-4.9) X10*3/uL [place] # (Auto) 0.3 (0.1-1.2) X10*3/uL Eos # (Auto) 0.0 (0.0-0.4) X10*3/uL Baso # (Auto) 0.0 (0.0-0.2) X10*3/uL Abs Immat Gran (auto) 0.04 H (0.00-0.03) X10*3/uL Absolute Neuts (auto) 4.3 (2.0-8.3) X10*3/uL Absolute Nucleated RBC 0.000 (0.0-0.012) X10*3/uL Nucleated RBC % (auto) 0.0 (0.0-0.2) /100WBC D-Dimer NG/ML Sodium 140 (135-145) mmol/L Potassium 4.9 (3.3-5.1) mmol/L Chloride 106 (96-108) mmol/L Carbon Dioxide 26 (22-29) mmol/L Anion Gap 13 (12-20) BUN 26 H (9-16) mg/dL Creatinine 1.25 (0.5-1.4) mg/dL Estim Creat Clear Calc 42.5 Estimated GFR 55 Random Glucose 151 H D (60-115) mg/dL Lactic Acid (0.5-2.0) mmol/L Calcium 8.9 D (8.4-10.2) mg/dL Total Bilirubin 0.4 (0.0-1.0) mg/dL Direct Bilirubin 0.2 (0.0-0.5) mg/dL AST 13 D (5-37) U/L ALT < 6 (0-40) U/L Alkaline Phosphatase 87 D (39-117) U/L Troponin I High Sens 5.7 (<3.5-35.0) ng/L B-Natriuretic Peptide (<100) pg/mL Total Protein 7.0 (6.5-8.0) g/dL Albumin 3.8 (3.5-5.0) g/dL Lipase 14 (8-78) U/L Urine Color Urine Appearance Urine pH (5.0-8.0) Ur Specific [place] (1.005-1.025) Urine Protein (NEG-TRACE) MG/DL Urine Glucose (UA) (NEG) MG/DL Urine Ketones (NEG) MG/DL Urine Blood (NEG) Urine Nitrite (NEG) Ur Leukocyte Esterase (NEG) Coronavirus (PCR) (Negative) Influenza Type A (PCR) (Negative) Influenza Type B (PCR) (Negative) RSV RNA Qual (PCR) (Negative) 11/13/20 11/13/20 11/13/20 Range/Units 18:29 18:29 18:29 WBC (4.8-10.8) X10*3/uL RBC (4.60-5.80) X10*6/uL Hgb (14.0-18.0) g/dl Hct (42-52) % MCV (80-98) fL MCH (27.0-33.0) pg MCHC (31.0-36.0) g/dl RDW (11.0-16.0) % Plt Count (160-400) X10*3/uL MPV (9.4-12.4) fL Immature Gran % (Auto) (0.0-0.4) % Neut % (Auto) (45-73) % Lymph % (Auto) (20-40) % [place] % (Auto) (2-11) % Eos % (Auto) (0-4) % Baso % (Auto) (0-2) % Lymph # (Auto) (1.2-4.9) X10*3/uL [place] # (Auto) (0.1-1.2) X10*3/uL Eos # (Auto) (0.0-0.4) X10*3/uL Baso # (Auto) (0.0-0.2) X10*3/uL Abs Immat Gran (auto) (0.00-0.03) X10*3/uL Absolute Neuts (auto) (2.0-8.3) X10*3/uL Absolute Nucleated RBC (0.0-0.012) X10*3/uL Nucleated RBC % (auto) (0.0-0.2) /100WBC D-Dimer 1566 NG/ML Sodium (135-145) mmol/L Potassium (3.3-5.1) mmol/L Chloride (96-108) mmol/L Carbon Dioxide (22-29) mmol/L Anion Gap (12-20) BUN (9-16) mg/dL Creatinine (0.5-1.4) mg/dL Estim Creat Clear Calc Estimated GFR Random Glucose (60-115) mg/dL Lactic Acid 1.0 (0.5-2.0) mmol/L Calcium (8.4-10.2) mg/dL Total Bilirubin (0.0-1.0) mg/dL Direct Bilirubin (0.0-0.5) mg/dL AST (5-37) U/L ALT (0-40) U/L Alkaline Phosphatase (39-117) U/L Troponin I High Sens (<3.5-35.0) ng/L B-Natriuretic Peptide 607 H (<100) pg/mL Total Protein (6.5-8.0) g/dL Albumin (3.5-5.0) g/dL Lipase (8-78) U/L Urine Color Urine Appearance Urine pH (5.0-8.0) Ur Specific [place] (1.005-1.025) Urine Protein (NEG-TRACE) MG/DL Urine Glucose (UA) (NEG) MG/DL Urine Ketones (NEG) MG/DL Urine Blood (NEG) Urine Nitrite (NEG) Ur Leukocyte Esterase (NEG) Coronavirus (PCR) (Negative) Influenza Type A (PCR) (Negative) Influenza Type B (PCR) (Negative) RSV RNA Qual (PCR) (Negative) 11/13/20 11/13/20 11/13/20 Range/Units 19:49 22:01 22:01 WBC (4.8-10.8) X10*3/uL RBC (4.60-5.80) X10*6/uL Hgb (14.0-18.0) g/dl Hct (42-52) % MCV (80-98) fL MCH (27.0-33.0) pg MCHC (31.0-36.0) g/dl RDW (11.0-16.0) % Plt Count (160-400) X10*3/uL MPV (9.4-12.4) fL Immature Gran % (Auto) (0.0-0.4) % Neut % (Auto) (45-73) % Lymph % (Auto) (20-40) % [place] % (Auto) (2-11) % Eos % (Auto) (0-4) % Baso % (Auto) (0-2) % Lymph # (Auto) (1.2-4.9) X10*3/uL [place] # (Auto) (0.1-1.2) X10*3/uL Eos # (Auto) (0.0-0.4) X10*3/uL Baso # (Auto) (0.0-0.2) X10*3/uL Abs Immat Gran (auto) (0.00-0.03) X10*3/uL Absolute Neuts (auto) (2.0-8.3) X10*3/uL Absolute Nucleated RBC (0.0-0.012) X10*3/uL Nucleated RBC % (auto) (0.0-0.2) /100WBC D-Dimer NG/ML Sodium (135-145) mmol/L Potassium (3.3-5.1) mmol/L Chloride (96-108) mmol/L Carbon Dioxide (22-29) mmol/L Anion Gap (12-20) BUN (9-16) mg/dL Creatinine (0.5-1.4) mg/dL Estim Creat Clear Calc Estimated GFR Random Glucose (60-115) mg/dL Lactic Acid (0.5-2.0) mmol/L Calcium (8.4-10.2) mg/dL Total Bilirubin (0.0-1.0) mg/dL Direct Bilirubin (0.0-0.5) mg/dL AST (5-37) U/L ALT (0-40) U/L Alkaline Phosphatase (39-117) U/L Troponin I High Sens 7.4 (<3.5-35.0) ng/L B-Natriuretic Peptide (<100) pg/mL Total Protein (6.5-8.0) g/dL Albumin (3.5-5.0) g/dL Lipase (8-78) U/L Urine Color YELLOW Urine Appearance HAZY Urine pH 6.0 (5.0-8.0) Ur Specific [place] 1.025 (1.005-1.025) Urine Protein TRACE (NEG-TRACE) MG/DL Urine Glucose (UA) NEG (NEG) MG/DL Urine Ketones 5 (NEG) MG/DL Urine Blood NEG (NEG) Urine Nitrite NEG (NEG) Ur Leukocyte Esterase NEG (NEG) Coronavirus (PCR) NEGATIVE (Negative) Influenza Type A (PCR) NEGATIVE (Negative) Influenza Type B (PCR) NEGATIVE (Negative) RSV RNA Qual (PCR) NEGATIVE (Negative) Imaging Data CT angiogram of the chest: Radiologist's impression: 1. No central or segmental pulmonary embolism. ? 2. Patchy bibasilar airspace opacities, decreased when compared to the recent chest CT. ? 3. New nodular density adjacent to the right hilum. Given short interval development of this nodular focus, this likely represents an infectious or inflammatory process. ? 4. Stable mildly prominent superior mediastinal lymph nodes. No new or increasing lymphadenopathy. ? 5. Large hiatal hernia, unchanged. ? Chest x-ray: Radiologist's impression: No acute cardiopulmonary finding. ECG Data Interpretation: Atrial flutter at 93 beats per minutes, right bundle-branch block, bifascicular block. Discharge Plan Discharge Clinical Impression: Atrial flutter, Dyspnea Patient Disposition: Admitted As Inpatient Transfer Details: [facility] to [facility] Instructions: Atrial Flutter (ED) Prescriptions: No Action clonidine HCl 0.1 mg Tablet 0.1 mg PO DAILY@1200 RF: 0 atorvastatin 40 mg Tablet 40 mg PO BEDTIME RF: 0 sennosides [senna] 8.6 mg Tablet 8.6 mg PO BID RF: 0 cyanocobalamin (vitamin B-12) 1,000 mcg Tablet 1,000 mcg PO DAILY RF: 0 tamsulosin 0.4 mg Capsule 0.4 mg PO BEDTIME RF: 0 docusate sodium 100 mg Capsule 100 mg PO DAILY RF: 0 aspirin 81 mg Tablet,Chewable 81 mg PO DAILY RF: 0 polyethylene glycol 3350 [Miralax] 17 gram/dose Powder 8.5 g PO QPM RF: 0 carbidopa-levodopa 25-100 mg Tablet 2 tab PO QID RF: 0 metoprolol tartrate 25 mg Tablet 25 mg PO DAILY@1200 RF: 0 lactulose 10 gram/15 mL Solution 30 ml PO DAILY RF: 0 cholecalciferol (vitamin D3) 25 mcg (1,000 unit) Tablet 25 mcg PO DAILY RF: 0 amoxicillin-pot clavulanate [Augmentin] 875-125 mg tablet 1 tab PO BID Qty: 10 RF: 0 doxycycline monohydrate 100 mg capsule 100 mg PO BID Qty: 10 RF: 0
[2020-11-13 18:38] LABS: MANUAL DIFF FLAG NO
--- NOTE | 2020-11-13 18:40 | PC.NURSE ---
iv inserted, labs drawn, patient registration supervisor afib 80s-90s, vitals otherwise currently stable, lungs course crackles, ivf running per order, will continue to monitor.
[2020-11-13 18:41] LABS: Basophils Percent Auto 0.2 % (0-2); Hematocrit 32.2 % (42-52); Hemoglobin 10.6 g/dl (14.0-18.0); Imm Gran Abs Auto 0.04 X10*3/uL (0.00-0.03); Imm Gran Pct Auto 0.8 % (0.0-0.4); Lymphocytes Absolute Auto 0.6 X10*3/uL (1.2-4.9); Lymphocytes Percent Auto 10.6 % (20-40); Mean Corpuscular HGB Conc 32.9 g/dl (31.0-36.0); Mean Corpuscular Volume 100.3 fL (80-98); Mean Platelet Volume 10.5 fL (9.4-12.4); Monocytes Absolute Auto 0.3 X10*3/uL (0.1-1.2); Monocytes Percent Auto 6.1 % (2-11); Neutrophils Absolute Auto 4.3 X10*3/uL (2.0-8.3); Neutrophils Percent Auto 82.3 % (45-73); Platelet Count 182 X10*3/uL (160-400); Red Blood Count 3.21 X10*6/uL (4.60-5.80); Red Cell Distribution Width 13.7 % (11.0-16.0); White Blood Count 5.3 X10*3/uL (4.8-10.8)
[2020-11-13] MEDS: 0.9 % Sodium Chloride 1,000 ML 999 ML IVCONT (18:41)
[2020-11-13 18:57] LABS: D Dimer 1566 NG/ML
[2020-11-13 19:02] LABS: B Type Natriuretic Peptide 607 pg/mL (<100)
[2020-11-13 19:03] LABS: Alanine Aminotransferase < 6 U/L (0-40); Albumin Level 3.8 g/dL (3.5-5.0); Alkaline Phosphatase 87 U/L (39-117); Anion Gap 13 (12-20); Aspartate Amino Transferase 13 U/L (5-37); Bilirubin Direct 0.2 mg/dL (0.0-0.5); Bilirubin Total 0.4 mg/dL (0.0-1.0); Blood Urea Nitrogen 26 mg/dL (9-16); Calcium 8.9 mg/dL (8.4-10.2); Carbon Dioxide 26 mmol/L (22-29); Chloride 106 mmol/L (96-108); Creatinine Clr Calc Pharmacy 42.5; Estimated Glomerular Filt Rate 55; Glucose Random 151 mg/dL (60-115); Lipase 14 U/L (8-78); Potassium 4.9 mmol/L (3.3-5.1); Sodium 140 mmol/L (135-145); Troponin-I High Sensitivity 5.7 ng/L (<3.5-35.0)
--- NOTE | 2020-11-13 19:50 | PC.NURSE ---
straight cath performed, urine obtained
[2020-11-13 19:59] LABS: Appearance Urine HAZY; Color Urine YELLOW; Glucose Urine UA NEG (NEG); Leukocyte Esterase Urine NEG (NEG); Nitrite Urine NEG (NEG); Specific Gravity - Urine 1.025 (1.005-1.025); Urine Blood NEG (NEG); Urine Ketones 5 MG/DL (NEG); Urine Protein TRACE MG/DL (NEG-TRACE)
[2020-11-13] MEDS: iohexoL 350 MG/ML 100 ML INFUS..BTL IV (20:26)
[2020-11-13 22:44] LABS: Troponin-I High Sensitivity 7.4 ng/L (<3.5-35.0)
[2020-11-13 22:50] LABS: Influenza A PCR NEGATIVE (Negative); Influenza B PCR NEGATIVE (Negative); Resp Syncy Virus RNA Qual PCR NEGATIVE (Negative); SARS COV2 PCR INHOUSE NEGATIVE (Negative)
--- NOTE | 2020-11-13 23:47 | PC.NURSE ---
Eduardo from [facility] calling for an update regarding pt condition and plan of care. Eduardo requesting a call back with updates [phone].
--- NOTE | 2020-11-13 23:55 | PC.NURSE ---
Pt resting in bed, awake and alert to baseline. Pt pulling himself off tele and oxygen. VSS at this time, pt satting @ 100% on 4 lpm, decreased to 2 lpm. Pt resting water, swallowing without difficulty. Pt aware of plan for possible admission. Continue to monitor.
--- NOTE | 2020-11-14 00:35 | P.HPHOSP_ITS ---
History of Present Illness Date of Service: 11/14/20 Chief Complaint: Unresponsive and hypoxic 80-year-old male with past medical history of AFib, chronic anemia, BPH, CKD, GERD, HTN, HLD, Parkinson's disease who comes from [facility] after being unresponsive and having and O2 of 55% on room air. On my exam of the patient he is oriented to self but not place or time, he is answering questions appropriately but not fully. Patient is not clear about why he is in the hospital. Therefore history is obtained mostly from EMR and ED physician. On arrival to the hospital patient's vitals are significant for temp of 97.9?, heart rate of 89, respiratory rate of 24, blood pressure 106/74, satting 100% on a non-rebreather currently patient is 100% on 2 L of nasal cannula For WBC count of 5.3, hemoglobin of 10.6 which is around his baseline, hematocrit of 32.2, BUN of 26, creatinine of 1.25 which is around his baseline, lactic acid normal, BNP of 607, troponin of 7.4, UA negative. EKG done on arrival shows new onset atrial flutter. CT angiogram is negative for PE but shows patchy bibasilar airspace opacities which are decreased when compared to the recent chest CT done in October. He has a new nodular density adjacent to the right hilum which is most likely secondary to a new infection per radiology read Patient will be admitted for further management Review of Systems Review of Systems: Yes all other systems are reviewed and are negative [facility] Medical History A-fib Anemia BPH (benign prostatic hyperplasia) CKD (chronic kidney disease) Eczema GERD (gastroesophageal reflux disease) HTN (hypertension) Hyperlipidemia Parkinsons Solar degeneration Social History Household Members: None Housing: Assisted Living Facility Do you presently have visiting nurse or other home services: Yes Unable to assess alcohol history related to: Unknown Alcohol intake: unknown Patient Tobacco Use Status: Former Tobacco user Use of substances other than those prescribed or required for medical reasons: Unknown Advance Directives: No Advance Directives Information Provided: Yes service: Yes Current occupational status: retired Meds Allergies Allergy/AdvReac Type Severity Reaction Status Date / Time No Known Allergies Allergy Verified 07/05/20 22:25 Active Medications: Current Medications Generic Name Dose Route Start Last Admin Trade Name Mercedes PRN Reason Stop Dose Admin Furosemide 40 mg 11/14/20 00:15 Furosemide 40 Mg/4 Ml Vial IVPUSH Q12H [facility] Protocol Ceftriaxone Sodium 1 gm/ 50 mls @ 100 mls/hr 11/14/20 00:15 Sodium Chloride IV Q24H [facility] Azithromycin 500 mg/ Sodium 250 mls @ 125 mls/hr 11/14/20 00:15 Chloride IV Q24H [facility] Home Medications Medication Instructions Recorded Confirmed Last Taken Type acetaminophen 325 mg tablet 650 mg PO Q4H PRN 11/14/20 11/14/20 Unknown History aluminum-mag hydroxide-simethicone 30 ml PO TID PRN 11/14/20 11/14/20 Unknown History 200 mg-200 mg-20 mg/5 mL oral susp aspirin 81 mg tablet 81 mg PO DAILY 11/14/20 11/14/20 Unknown History atorvastatin 40 mg tablet 40 mg PO BEDTIME 11/14/20 11/14/20 Unknown History cholecalciferol (vitamin D3) 25 25 mcg PO DAILY 11/14/20 11/14/20 Unknown History mcg (1,000 unit) tablet clonidine HCl 0.1 mg tablet 0.1 mg PO DAILY 11/14/20 11/14/20 Unknown History cyanocobalamin (vitamin B-12) 1,000 mcg PO DAILY 11/14/20 11/14/20 Unknown History 1,000 mcg tablet docusate sodium 100 mg capsule 100 mg PO BID 11/14/20 11/14/20 Unknown History lactulose 10 gram/15 mL oral 30 ml PO DAILY 11/14/20 11/14/20 Unknown History solution metoprolol succinate 25 mg 25 mg PO DAILY 11/14/20 11/14/20 Unknown History tablet,extended release 24 hr nystatin 100,000 unit/gram topical 1 appl TOPICAL DAILY 11/14/20 11/14/20 Unknown History powder polyethylene glycol 3350 8.5 gram 8.5 g PO DAILY 11/14/20 11/14/20 Unknown History oral powder packet sennosides 8.6 mg tablet (senna) 8.6 mg PO BID 11/14/20 11/14/20 Unknown History tamsulosin 0.4 mg capsule 0.4 mg PO DAILY 11/14/20 11/14/20 Unknown History Physical Exam Vital Signs and Narrative: Vital Signs: Last Vital Signs Temp 97.9 F 11/13/20 21:28 Pulse 97 11/13/20 23:52 Resp 24 H 11/13/20 23:52 BP 110/63 11/13/20 23:52 Pulse Ox 100 11/13/20 23:52 Body Mass Index 22.8 Const: Other: Oriented to self, not place or time, appears very confused, has significant tremors General: cooperative and no acute distress Eyes: General: appearance normal, both eyes and all related structures Resp: Effort & Inspection: normal respiratory effort and able to speak in complete sentences Auscultation: clear to auscultation bilaterally Cardio: Rate: regular rate Rhythm: abnormal rhythm GI: Palpation (GI): Soft to palpation Auscultation: normal bowel sounds Skin: General skin exam: no rashes or lesions noted Neuro: Cognition (Neuro): normal cognition Extrem: Other: Trace pedal edema bilaterally General: Yes normal to inspection Results Labs CBC and Chem 7: 11/13/20 18:29 11/13/20 18:29 Labs: Laboratory Results - last 24 hr 11/13/20 11/13/20 11/13/20 18:29 18:29 18:29 MCV 100.3 H MCH 33.0 MCHC 32.9 RDW 13.7 Plt Count 182 D MPV 10.5 Immature Gran % (Auto) 0.8 H Neut % (Auto) 82.3 H Lymph % (Auto) 10.6 L [place] % (Auto) 6.1 Eos % (Auto) 0.0 Baso % (Auto) 0.2 Lymph # (Auto) 0.6 L [place] # (Auto) 0.3 Eos # (Auto) 0.0 Baso # (Auto) 0.0 Abs Immat Gran (auto) 0.04 H Absolute Neuts (auto) 4.3 Absolute Nucleated RBC 0.000 Nucleated RBC % (auto) 0.0 D-Dimer Anion Gap 13 Estim Creat Clear Calc 42.5 Estimated GFR 55 Random Glucose 151 H D Lactic Acid Calcium 8.9 D Total Bilirubin 0.4 Direct Bilirubin 0.2 AST 13 D ALT < 6 Alkaline Phosphatase 87 D Troponin I High Sens 5.7 B-Natriuretic Peptide Total Protein 7.0 Albumin 3.8 Lipase 14 Urine Color Urine Appearance Urine pH Ur Specific [place] Urine Protein Urine Glucose (UA) Urine Ketones Urine Blood Urine Nitrite Ur Leukocyte Esterase Coronavirus (PCR) Influenza Type A (PCR) Influenza Type B (PCR) RSV RNA Qual (PCR) 11/13/20 11/13/20 11/13/20 18:29 18:29 18:29 MCV MCH MCHC RDW Plt Count MPV Immature Gran % (Auto) Neut % (Auto) Lymph % (Auto) [place] % (Auto) Eos % (Auto) Baso % (Auto) Lymph # (Auto) [place] # (Auto) Eos # (Auto) Baso # (Auto) Abs Immat Gran (auto) Absolute Neuts (auto) Absolute Nucleated RBC Nucleated RBC % (auto) D-Dimer 1566 Anion Gap Estim Creat Clear Calc Estimated GFR Random Glucose Lactic Acid 1.0 Calcium Total Bilirubin Direct Bilirubin AST ALT Alkaline Phosphatase Troponin I High Sens B-Natriuretic Peptide 607 H Total Protein Albumin Lipase Urine Color Urine Appearance Urine pH Ur Specific [place] Urine Protein Urine Glucose (UA) Urine Ketones Urine Blood Urine Nitrite Ur Leukocyte Esterase Coronavirus (PCR) Influenza Type A (PCR) Influenza Type B (PCR) RSV RNA Qual (PCR) 11/13/20 11/13/20 11/13/20 19:49 22:01 22:01 MCV MCH MCHC RDW Plt Count MPV Immature Gran % (Auto) Neut % (Auto) Lymph % (Auto) [place] % (Auto) Eos % (Auto) Baso % (Auto) Lymph # (Auto) [place] # (Auto) Eos # (Auto) Baso # (Auto) Abs Immat Gran (auto) Absolute Neuts (auto) Absolute Nucleated RBC Nucleated RBC % (auto) D-Dimer Anion Gap Estim Creat Clear Calc Estimated GFR Random Glucose Lactic Acid Calcium Total Bilirubin Direct Bilirubin AST ALT Alkaline Phosphatase Troponin I High Sens 7.4 B-Natriuretic Peptide Total Protein Albumin Lipase Urine Color YELLOW Urine Appearance HAZY Urine pH 6.0 Ur Specific [place] 1.025 Urine Protein TRACE Urine Glucose (UA) NEG Urine Ketones 5 Urine Blood NEG Urine Nitrite NEG Ur Leukocyte Esterase NEG Coronavirus (PCR) NEGATIVE Influenza Type A (PCR) NEGATIVE Influenza Type B (PCR) NEGATIVE RSV RNA Qual (PCR) NEGATIVE ECG Interpretation: Atrial flutter Nonspecific ST T wave abnormalities Imaging Radiologist's Impressions: Impressions Chest X-Ray 11/13/20 18:19 IMPRESSION: No acute cardiopulmonary findings. Chest CTA 11/13/20 20:05 IMPRESSION: 1. No central or segmental pulmonary embolism. 2. Patchy bibasilar airspace opacities, decreased when compared to the recent chest CT. 3. New nodular density adjacent to the right hilum. Given short interval development of this nodular focus, this likely represents an infectious or inflammatory process. 4. Stable mildly prominent superior mediastinal lymph nodes. No new or increasing lymphadenopathy. 5. Large hiatal hernia, unchanged. VTE: negative Assessment and Plan (1) Atrial flutter: Qualifiers: Atrial flutter type: typical Qualified Code(s): I48.3 - Typical atrial flutter Status: Acute (2) CHF exacerbation: Status: Acute (3) Community acquired pneumonia: Status: Acute (4) Acute respiratory failure with hypoxia: Status: Acute (5) Encephalopathy: Status: Acute This is an 80-year-old male who [facility] to unresponsiveness and hypoxia # acute hypoxic respiratory failure - most likely multifactorial secondary to CHF as well as pneumonia - COVID-19 negative - will start on IV Lasix - IV antibiotics - continue O2 as required - titrate O2 as tolerated # community-acquired pneumonia - patient has any infiltrate developed since October of 2020 - afebrile, no leukocytosis - given his hypoxia will start him on IV antibiotics - Follow cultures # new onset atrial flutter - patient with no history of cardiac arrhythmia - EKG shows atrial flutter - hemodynamically stable - will consult cardiology - echo - has a chads Vasc score 3 # new CHF - no documented history of CHF - has elevated BNP as well as lower extremity edema - will start him on IV Lasix, strict I&O, low-sodium diet, daily weight - echocardiogram - cardiology consult # encephalopathy Most likely has baseline dementia due to Parkinson's disease with worsening encephalopathy due to hypoxia and acute infection - monitor mentation DVT prophylaxis: Heparin subQ Quality Stroke Does the patient have a stroke diagnosis?: No VTE Prior VTE?: No VTE Risk Level:: Medical - moderate - high VTE Device Contraindication: Treatment Not Indicated VTE Drug Contraindication: N/A - Med Ordered
--- NOTE | 2020-11-14 00:39 | CA_ITS ---
Transthoracic Echocardiogram Patient (Last, First, Middle): Rony Oquendo W Gender: Male Date of : 1940 Age: 80 Procedure Date: 11/14/2020 Procedure Type: Transthoracic Echocardiogram Location: ER Height: 170.18 cm Weight: 65.77 kg BSA: 1.76 m2 Heart Rate: bpm BP: 109 / 43 mmHg Dynamics Ax Solution Architect: KEERTHI/GUZMAN Referring MD: Kaleb Stacy MD Salesperson Corsets: Sahil Hyatt MD Symptoms: chf Study Quality: Technically Difficult ECG Rhythm: Undetermined Conclusions: - 1. Normal LV systolic function 2. Mildly dilated left atrium 3. Possible severe aortic stenosis, paradoxical low-flow 4. Normal RV systolic pressure 5. No pericardial effusion Findings Left Ventricle Normal left ventricular size, thickness, and systolic function. The visually estimated ejection fraction is between 60-65%. Diastolic function is indeterminate on the basis of available data. Evidence suggests grade I (mild) diastolic dysfunction. Right Ventricle The right ventricle was not well visualized. Atria The left atrium is mildly dilated. Interatrial shunt cannot be excluded. The right atrium was not well visualized. Aortic Valve There is moderate calcification of the aortic valve. The mean gradient is 22 mmHg. The aortic valve area is 0.77 cm2. There is mild aortic valve regurgitation. Mitral Valve There is moderate anterior and severe posterior mitral leaflet thickening. There is severe mitral annular calcification. There is trace mitral valve regurgitation. There is no mitral valve stenosis. Pulmonic Valve The pulmonic valve was not well visualized. Tricuspid Valve Likely normal tricuspid valve structure and function. There is trace tricuspid valve regurgitation. The right ventricular systolic pressure is normal. The right ventricular systolic pressure is 33 mmHg. Normal right atrial pressure. There is no evidence of pulmonary hypertension. Great Vessels All visible segments of the aorta are normal in size. The pulmonary artery was not well visualized. Venous The inferior vena cava is normal in size and collapses greater than 50% with inspiration. Pericardium/Pleural There is no evidence of pericardial effusion. Prior Study Comparison No prior study available for comparison. Measurements 2D Linear Measurements IVSd: 1.11 0.6-0.9/0.6-1.0 cm LVIDd: 4.40 3.9-5.3/4.2-5.9 cm LVIDd Index: 2.50 2.4-3.2/2.2-3.1 cm/m2 LVIDs: 3.05 2.0-3.6 cm LVPWd: 1.12 0.7-1.1 cm Ao Root: 3.70 2.1-3.5 cm LA Diam: 3.90 2.7-3.8/3.0-4.0 cm LAIDs Index: 2.22 1.5-2.3 cm/m2 LV Mass: 214.50 67-162/88-224 g LV Mass Index: 121.88 43-95/49-115 g/m2 LVOT Diam: 2.00 3.0+(-)1.3 cm Aortic Valve AoV Pk Reyes: 3.19 AoV Mn Reyes: 2.20 AoV VTI: 0.68 AoV Pk Grad: 41.00 Aov Mn Grad: 22.00 MIGDALIA Cont.VTI: 0.77 LVOT LVOT Pk Reyes: 0.64 LVOT Mn Reyes: 0.49 LVOT VTI: 0.17 LVOT Pk Grad: 2.00 LVOT Mn Grad: 1.00 LVOT Diam: 2.00 LVOT Area: 3.14 Right Ventricle TAPSE (mm): 2.00 Tricuspid Valve TR Pk Reyes: 2.49 TR Pk Grad: 25.00 RA Press: 8.00 RVSP: 33.00 Great Vessels Aorta Ao Root-2D: 3.70 2.0-3.7 cm Ao Asc: 3.60 2.1-3.4 cm Updated in Other Vendor System with Status of Final Sahil Hyatt MD electronically signed on 11/14/2020 4:54:24 PM with status of Final
[2020-11-14] MEDS: cefTRIAXone sodium 1 GM in 0.9 % Sodium Chloride 50 ML IV ×2 (01:10→21:01)
[2020-11-14 01:14] VITALS: BP 131/64; PULSE 94; RESP 16; O2SAT 100
[2020-11-14] MEDS: Heparin Sodium,Porcine 5,000 UNIT/ML VIAL 5000 UNIT SUBCUT ×3 (01:14→20:49)
[2020-11-14] MEDS: Furosemide 40 MG/4 ML VIAL IVPUSH ×2 (01:14→14:14)
--- NOTE | 2020-11-14 01:19 | PC.NURSE ---
Noel placed. Pt medicated per JUN. VSS. Awaiting room assignment.
[2020-11-14 01:37] VITALS: BP 125/51; PULSE 95; RESP 20; O2SAT 100
[2020-11-14] MEDS: Azithromycin 500 MG in 0.9 % Sodium Chloride 250 ML 125 MG IV ×2 (01:37→21:01)
--- NOTE | 2020-11-14 01:55 | PC.NURSE ---
Med Rec completed at this time from records sent by facility. Pt unable to confirm.
--- NOTE | 2020-11-14 02:36 | PC.NURSE ---
Pt constantly pulling at IVs, telemetry wires and mackey catheter. Pt has been redirected multiple times, IVs wrapped in roll gauze to secure. Continue to monitor.
--- NOTE | 2020-11-14 05:20 | PC.NURSE ---
XRay at bedside.
[2020-11-14 06:19] VITALS: BP 109/43; PULSE 94; RESP 28; TEMP 37.9; O2SAT 98
--- NOTE | 2020-11-14 06:34 | PC.NURSE ---
Pt found bleeding from mackey site. 1100 ml of UO noted and documented. Pt warm to the touch with a rectal temp of 100.3. Pt incontinent of a large brown stool, provided with shaheed care and a complete bed change. Scrub pants placed on pt to prevent him from tugging at mackey cath. Redness noted to coccyx, barrier cream applied, pt repositioned onto right side with additional pillows for comfort. VSS at this time. Continue to monitor.
[2020-11-14 06:50] LABS: MANUAL DIFF FLAG NO
[2020-11-14 06:56] LABS: Basophils Percent Auto 0.1 % (0-2); Hematocrit 29.1 % (42-52); Hemoglobin 9.8 g/dl (14.0-18.0); Imm Gran Abs Auto 0.04 X10*3/uL (0.00-0.03); Imm Gran Pct Auto 0.3 % (0.0-0.4); Lymphocytes Absolute Auto 2.1 X10*3/uL (1.2-4.9); Lymphocytes Percent Auto 15.9 % (20-40); Mean Corpuscular HGB Conc 33.7 g/dl (31.0-36.0); Mean Corpuscular Hemoglobin 33.1 pg (27.0-33.0); Mean Corpuscular Volume 98.3 fL (80-98); Mean Platelet Volume 10.5 fL (9.4-12.4); Monocytes Percent Auto 7.4 % (2-11); Neutrophils Absolute Auto 10.2 X10*3/uL (2.0-8.3); Neutrophils Percent Auto 76.3 % (45-73); Platelet Count 158 X10*3/uL (160-400); Red Blood Count 2.96 X10*6/uL (4.60-5.80); Red Cell Distribution Width 13.7 % (11.0-16.0); White Blood Count 13.4 X10*3/uL (4.8-10.8)
[2020-11-14 07:27] LABS: Anion Gap 13 (12-20); Blood Urea Nitrogen 25 mg/dL (9-16); Calcium 8.7 mg/dL (8.4-10.2); Carbon Dioxide 24 mmol/L (22-29); Chloride 107 mmol/L (96-108); Creatinine Clr Calc Pharmacy 46.2; Estimated Glomerular Filt Rate > 60; Glucose Random 112 mg/dL (60-115); Sodium 140 mmol/L (135-145)
--- NOTE | 2020-11-14 08:40 | PC.NURSE ---
called to give report rn will call back
--- NOTE | 2020-11-14 08:41 | PC.NURSE ---
PTS DAUGHTER CALLED WANTS PT SENT BACK TO [facility], AND PLACED ON HOSPICE. FAMILY WANTS NOTHING INVASIVE DONE. WILL CONTACT HOSPITALIST
[2020-11-14] MEDS: 0.9 % Sodium Chloride Flush 3 ML SYRINGE IVFLUSH ×2 (09:05→17:27)
--- NOTE | 2020-11-14 09:22 | MHC.CM.PN ---
talked with pts daughter and hcp daria [phone] who reports that she has called the [facility] and spoke with his sw family is requesting that pt not be admitted and returned to [facility] be placed on hospice .,pt sw is emani holley..will assist as needed .
--- NOTE | 2020-11-14 09:26 | PHA.MEDREC ---
Pharmacy Consult ? Medication Reconciliation Pharmacy has completed the medication reconciliation. There are no remarkable issues for provider's attention. Becky John, KellieD
--- NOTE | 2020-11-14 09:34 | MHC.CM.PN ---
Patient admitted but boarding in the ER. Received notification from YOBANY Herbert that patient's family is intereseted in patient returning to the [facility] with hospice. T/W attempted to speak with Parisa medical social consultant at [facility]. Left message requesting return telephone call. Continue to monitor for d/c needs.
--- NOTE | 2020-11-14 10:41 | MHC.CM.PN ---
Received telephone call from Diana, nurse music manager at [facility]. They are contracted with [place], [facility], and [facility] for hospice. Spoke with patient's daughter, HCP Emely via telephone at [phone]. Emely requesting referral to [facility]. Referral made via [employer]. Continue to monitor for d/c needs.
[2020-11-14 10:48] VITALS: BP 147/59; PULSE 87; RESP 20; TEMP 37.1; O2SAT 99
--- NOTE | 2020-11-14 14:16 | PC.NURSE ---
PT RESTING S/F IN BED, OFFERS NO ACUTE COMPLAINTS, PT REPOSITIONED TO R SIDE. PT AWAITING DISPO.
--- NOTE | 2020-11-14 16:01 | MHC.CM.PN ---
Per Bibi at the [place], hospice would be under [facility]. Heidi from [facility] is aware and will find out next step in order to get patient back to the [facility] under hospice. Continue to monitor for d/c needs.
--- NOTE | 2020-11-14 16:07 | MHC.CM.PN ---
CM spoke with Bibi from [place] who states hospice payment goes through pt secondary insurance. [employer] made aware through [employer]. Awaiting word from [employer]. CM to follow for d/c needs.
[2020-11-15 00:08] VITALS: BP 145/50; PULSE 75; RESP 22; TEMP 37.9
[2020-11-15] MEDS: Acetaminophen 325 MG TABLET 650 MG PO (00:14)
--- NOTE | 2020-11-15 00:17 | PC.NURSE ---
pt repositioned. complete shaheed care. pt has scratch to groin area. pt medicated for fever. provider aware.
[2020-11-15] MEDS: Furosemide 40 MG/4 ML VIAL IVPUSH (01:07)
[2020-11-15] MEDS: 0.9 % Sodium Chloride Flush 3 ML SYRINGE IVFLUSH (01:08)
--- NOTE | 2020-11-15 01:13 | PC.NURSE ---
medicated per Mar. pt is resting in bed. pt on monitor normal sinus.
[2020-11-15 02:05] VITALS: BP 167/67; PULSE 74; RESP 22; TEMP 37.4; O2SAT 100
[2020-11-15 05:57] VITALS: BP 141/78; PULSE 94; RESP 13
--- NOTE | 2020-11-15 05:58 | PC.NURSE ---
PT REPOSITIONED FOR COMFORT. FANNY-CARE COMPLETED
--- NOTE | 2020-11-15 06:20 | PC.NURSE ---
pt incontinent of stool. pt repositioned and shaheed -care completed. pt continue to have a low grade temp provider is aware.
[2020-11-15 06:22] VITALS: TEMP 37.7
[2020-11-15 07:05] VITALS: BP 139/58; PULSE 100; RESP 28; TEMP 36.5; O2SAT 100
--- NOTE | 2020-11-15 07:05 | PC.NURSE ---
report taken from sonia griffin pt [facility] from [facility] w/ pna, initially planned for inpt admission, but ?change to comfort measures per previous shift rn. pt resting comfortably in hospital bed at this time, rr even/unlabored on 3l nc, afebrile. vss. indwelling mackey draining clear yellow urine, iv secured on lac. wctm for pt needs. pt appears to be sleeping, alert to tactile stimuli on first contact.
--- NOTE | 2020-11-15 09:44 | MHC.CM.PN ---
[facility] is able to admit patient to their agency today. Patient can leave at noon. [facility] with oxygen booked for 12pm. Med nec with chart. Patient, daughter Emely, Dianairis ORTIZ director at the [facility], Skip ORTIZ and Dr Silverio aware. Continue to monitor for d/c needs.
--- NOTE | 2020-11-15 10:19 | PM.DS ---
DS: Providers Provider Date of Service: 11/15/20 Date of admission: 11/14/20 00:10 Primary care physician: Unknown Physician Consults: 11/14/20 00:39 Consult to Cardiology Routine Consulting Provider: Sahil Hyatt Reason for consultation: CHF, new onset a flutter DS: Diagnosis Discharge Diagnosis (1) Atrial flutter: Status: Acute (2) CHF exacerbation: Status: Acute (3) Community acquired pneumonia: Status: Acute (4) Acute respiratory failure with hypoxia: Status: Acute (5) Encephalopathy: Status: Acute DS: Medications Discharge Medications Home Medications: Home Medications Medication Instructions Recorded Confirmed acetaminophen 325 mg tablet 650 mg PO Q4H PRN 11/14/20 11/14/20 aluminum-mag hydroxide-simethicone 30 ml PO TID PRN 11/14/20 11/14/20 200 mg-200 mg-20 mg/5 mL oral susp aspirin 81 mg chewable tablet 81 mg PO DAILY 11/14/20 11/14/20 atorvastatin 40 mg tablet 40 mg PO BEDTIME 11/14/20 11/14/20 carbidopa 25 mg-levodopa 100 mg 2 tab PO QID 11/14/20 11/14/20 tablet cholecalciferol (vitamin D3) 25 25 mcg PO DAILY 11/14/20 11/14/20 mcg (1,000 unit) tablet clonidine HCl 0.1 mg tablet 0.1 mg PO DAILY@1200 11/14/20 11/14/20 cyanocobalamin (vitamin B-12) 1,000 mcg PO DAILY 11/14/20 11/14/20 1,000 mcg tablet docusate sodium 100 mg capsule 100 mg PO BID 11/14/20 11/14/20 lactulose 10 gram/15 mL oral 30 ml PO DAILY 11/14/20 11/14/20 solution metoprolol succinate 25 mg 25 mg PO DAILY@1200 11/14/20 11/14/20 tablet,extended release 24 hr nystatin 100,000 unit/gram topical 1 appl TOPICAL DAILY 11/14/20 11/14/20 powder polyethylene glycol 3350 8.5 gram 8.5 g PO BEDTIME 11/14/20 11/14/20 oral powder packet prednisone 20 mg tablet 20 mg PO DAILY 11/14/20 11/14/20 sennosides 8.6 mg tablet (senna) 8.6 mg PO BID 11/14/20 11/14/20 tamsulosin 0.4 mg capsule 0.4 mg PO DAILY 11/14/20 11/14/20 Previous Rx's Medication Instructions Recorded lorazepam 0.5 mg tablet (Ativan) 0.5 mg PO Q6H PRN #14 tab 11/15/20 morphine 20 mg/5 mL (4 mg/mL) oral 5 mg PO Q3H PRN #100 ml 11/15/20 solution DS: Summary Hospital Course Hospital Course: Chief Complaint: Unresponsive and hypoxic 80-year-old male with past medical history of AFib, chronic anemia, BPH, CKD, GERD, HTN, HLD, Parkinson's disease who comes from [facility] after being unresponsive and having and O2 of 55% on room air.? On my exam of the patient he is oriented to self but not place or time, he is answering questions appropriately but not fully.? Patient is not clear about why he is in the hospital.? Therefore history is obtained mostly from EMR and ED physician. On arrival to the hospital patient's vitals are significant for temp of 97.9?, heart rate of 89, respiratory rate of 24, blood pressure 106/74, satting 100% on a non-rebreather currently patient is 100% on 2 L of nasal cannula For WBC count of 5.3, hemoglobin of 10.6 which is around his baseline, hematocrit of 32.2, BUN of 26, creatinine of 1.25 which is around his baseline, lactic acid normal, BNP of 607, troponin of 7.4, UA negative. EKG done on arrival shows new onset atrial flutter. CT angiogram is negative for PE but shows patchy bibasilar airspace opacities which are decreased when compared to the recent chest CT done in October.? He has a new nodular density adjacent to the right hilum which is most likely secondary to a new infection per radiology read Hospital course: Upon admission for management for acute respiratory failure with Hypoxia, CHF, Pneumoia, Sepsis, metatoclic encephalopathy and AFIB, Fermin who is healthcare proxy opted for patient disharge back to Nursing with hospice care and no further treatment in the hospital. Case management has therefore made the necessary arrangement for the patient to return to the [place] [facility] care. All meds med have been discontined. Morphine, Ativan will be given for comfort and scopolamine to help with secreations. Final Diagnoses: Se[sos Acute hypoxic respiratory failure Pneumonia Heart failure, likely acute diastolic metabolic encephalopathy AFIB Time Spent with Patient Time attestation: Total time spent providing and/or coordinating discharge services: Discharge coordination time: Greater than 30 minutes Quality: Stroke Does the patient have a stroke diagnosis?: No Physical Exam Vital Signs: Vital Signs: Last Vital Signs Temp 97.7 F 11/15/20 07:05 Pulse 100 11/15/20 07:05 Resp 28 H 11/15/20 07:05 BP 139/58 L 11/15/20 07:05 Pulse Ox 100 11/15/20 07:05 Body Mass Index 22.8 DS: Data Data Completed and Pending Labs on day of discharge: Preliminary micro results at discharge 11/13/20 18:31 Blood Culture - Preliminary Blood - Venous Prelim: GPC Gram Stain only 11/13/20 18:31 Blood Culture - Preliminary Blood - Venous No growth after 24 hours. Discharge Plan Discharge Anticipated Discharge Date/Time: 11/14/20 16:47 Patient Disposition: Xfer SNF Discharge Diagnosis: Acute respiratory failure, Pneumonia, heart failure. Referrals: [facility] [Other] - 1 Week Physician,Unknown [Primary Care Provider] - 1 Week Discharge Medications: New morphine 20 mg/5 mL (4 mg/mL) solution 5 mg PO Q3H PRN (Reason: dyspnea) Qty: 100 RF: 0 scopolamine base [Transderm-Scop] 1 mg over 3 days patch 3 day 1 patch transdermal Q3D PRN (Reason: secretions) Qty: 4 RF: 0 lorazepam [Ativan] 0.5 mg tablet 0.5 mg PO Q6H PRN (Reason: Anxiet) Qty: 14 RF: 0 Discontinued atorvastatin 40 mg Tablet 40 mg PO BEDTIME RF: 0 sennosides [senna] 8.6 mg Tablet 8.6 mg PO BID RF: 0 clonidine HCl 0.1 mg Tablet 0.1 mg PO DAILY@1200 RF: 0 acetaminophen 325 mg Tablet 650 mg PO Q4H PRN (Reason: Fever Or Pain) RF: 0 cyanocobalamin (vitamin B-12) 1,000 mcg Tablet 1,000 mcg PO DAILY RF: 0 tamsulosin 0.4 mg Capsule 0.4 mg PO DAILY RF: 0 docusate sodium 100 mg Capsule 100 mg PO BID RF: 0 metoprolol succinate 25 mg Tablet Extended Release 24 Hr 25 mg PO DAILY@1200 RF: 0 alum-mag hydroxide-simeth 200-200-20 mg/5 mL Suspension 30 ml PO TID PRN (Reason: Indigestion) RF: 0 nystatin 100,000 unit/gram Powder 1 appl TOPICAL DAILY RF: 0 lactulose 10 gram/15 mL Solution 30 ml PO DAILY RF: 0 cholecalciferol (vitamin D3) 25 mcg (1,000 unit) Tablet 25 mcg PO DAILY RF: 0 polyethylene glycol 3350 8.5 gram Powder In Packet 8.5 g PO BEDTIME RF: 0 prednisone 20 mg Tablet 20 mg PO DAILY RF: 0 aspirin 81 mg Tablet,Chewable 81 mg PO DAILY RF: 0 carbidopa-levodopa 25-100 mg Tablet 2 tab PO QID RF: 0 Discharge Orders: Discharge Order (Routine); Ordered 11/15/20 Ordered By: Ever Silverio Activity on Discharge: As tolerated Stand Alone Forms: Patient Portal Discharge page Care Plan Goals: Comfort/Hospice Health Concerns: PNeumonia, Heart failure Plan of Treatment: Hospice care Assessment: As above Patient Instructions: Atrial Flutter (ED)
--- NOTE | 2020-11-15 11:45 | PC.NURSE ---
NURSE TO NURSE REPORT GIVEN TO WES ORTIZ AT [facility]
== END 2020-11-15 12:41 | disposition skilled nursing facility (03) | DRG 871 ==
LOC: HO.ED 11-14 00:12 → HO.EDOVER 11-14 00:31 → HO.IMC 11-14 06:28 → HO.EDOVER 11-14 11:22
PROVIDERS: Admitting Provider Internal Medicine; Emergency Provider Emergency Medicine; Visit Provider Internal Medicine
DX: A41.9 Sepsis, unspecified organism (principal); J18.9 Pneumonia, unspecified organism; J96.01 Acute respiratory failure with hypoxia; I50.31 Acute diastolic (congestive) heart failure; G93.41 Metabolic encephalopathy; I48.3 Typical atrial flutter; I13.0 Hypertensive heart and chronic kidney disease with heart failure and stage 1 through stage 4 chronic kidney disease, or unspecified chronic kidney disease; K21.9 Gastro-esophageal reflux disease without esophagitis; N18.9 Chronic kidney disease, unspecified; I48.91 Unspecified atrial fibrillation; G20 Parkinson's disease; F02.80 Dementia in other diseases classified elsewhere, unspecified severity, without behavioral disturbance, psychotic disturbance, mood disturbance, and anxiety; Z20.822 Contact with and (suspected) exposure to COVID-19; Z79.899 Other long term (current) drug therapy; Z66 Do not resuscitate
CPT/HCPCS: 0241U; 36415; 71045; 71275; 80048; 80076; 81003; 83605; 83690; 83880; 84484; 85025; 85379; 87040; 87147; 87205; 93005; 93306; 99285; J0456; J0696; J1940; Q9957; Q9967